=== PATIENT | female | born 1995 | race Caucasian/White ===

== ENCOUNTER 2018-01-07 15:52 | Emergency (ER) | payer SELFPAY ==
[2018-01-07 15:54] VITALS: BP 131/67; PULSE 95; RESP 16; TEMP 36.6; O2SAT 96; BMI 42.3
[2018-01-07 16:36] LABS: Bedside Glucose 107 mg/dL (70-110)
[2018-01-07 16:58] LABS: Pregnancy, Serum, hCG Quali. POSITIVE Negative (0-9 Nonpreg)
--- NOTE | 2018-01-07 17:56 | ED.VISSUMM ---
- ER Visit Summary Date of Service: 01/07/18 Chief Complaint: Patient presents with a constellation of symptoms which include nausea vomiting, sore throat, aches and nasal congestion History of Present Illness: The patient is a 22 F who presents with nausea vomiting started 4-5 days ago and lasted for 1-2 days. She now complains of severe nausea. She states yesterday she had aches and today she has complaint of sore throat. She denies fever or chills. She does complain of right ear pain. She does complain of slight cough. Cough is nonproductive. She does complain of frequency. There is a family history of diabetes. She denies dysuria, urgency or hematuria. She denies any abdominal pain or back pain. She states her menses are irregular. She is sexually active and does not use any form of control. Physical Examination: Vital signs are remarkable for slight elevation blood pressure 131/67. Vital signs are otherwise unremarkable. Head is atraumatic normocephalic. Pupils are equal round reactive. Extraocular muscles are intact. TMs are pearly white with landmarks noted. Nares patent with no drainage there is evidence of boggy nasal mucosa. Posterior pharynx without erythema or exudate. Uvula is midline. There is no dysphonia or dysphasia. Trachea is midline. There is no stridor with auscultation of the neck. Heart is regular without murmur, gallop or rub. S1 and S2 are normal. Lungs are clear to auscultation with good movement of air bilaterally. Abdomen soft nontender. Neuro exam is nonfocal Test Results: B GT unremarkable. Serum test is positive Emergency Department Course and Treatment: Because of irregular menses frequency will obtain serum test as well as B GT central family history diabetes. Treatment Plan: Patient was informed she has a viral illness and that her test was positive. Her jewel inspector/safety lamp keeper is Dr. Dat Walton. Disposition: Discharged home with appropriate home-going instructions and follow-up with safety lamp keeper, Dr. Dat Walton Impression: 1. Acute viral illness 2. Positive test, new diagnosis This note was generated with [employer] software. It may contain incorrect words, spelling, and punctuation that were not noted in review of the chart prior to signing ED Disposition - Plan for ED Patient: Disposition: Home or Assisted Living Chief Complaint: Nausea/Vomiting Instructions: ED Viral Syndrome, ED Preg Established Normal Sxs Referrals: Care Physician,No Primary [Primary Care Provider] - Dat Walton MD [STAFF PHYSICIAN] - 1-2 Weeks
[2018-01-07 18:05] VITALS: BP 116/71; PULSE 73; RESP 15; O2SAT 98
== END 2018-01-07 18:06 | disposition home or self-care (01) ==
PROVIDERS: Emergency Provider Emergency Medicine
DX: B34.9 Viral infection, unspecified (principal); Z33.1 Pregnant state, incidental; H92.01 Otalgia, right ear; J34.89 Other specified disorders of nose and nasal sinuses; J02.9 Acute pharyngitis, unspecified; R05 Cough; R35.0 Frequency of micturition; R11.2 Nausea with vomiting, unspecified; E66.9 Obesity, unspecified; Z72.0 Tobacco use
CPT/HCPCS: 82962; 84703; 99284

== ENCOUNTER → 2018-01-24 16:56 | Outpatient (CLI) | payer SELFPAY ==
[2018-01-24 20:57] LABS: Chlamydia Trachomatis by PCR Negative (Negative); Neisserai gonorrhoeae by PCR Negative (Negative); Probe Check PASS; Sample Adequacy Control PASS; Specimen Processing Control PASS
[2018-01-31 12:15] LABS: HPV Reflexed? NOT INDICATED
== END ==
PROVIDERS: Visit Provider Obstetrics & Gynecology
DX: N39.0 Urinary tract infection, site not specified (principal); R30.0 Dysuria; Z12.4 Encounter for screening for malignant neoplasm of cervix; Z11.3 Encounter for screening for infections with a predominantly sexual mode of transmission
CPT/HCPCS: 87086; 87088; 87186; 87491; 87591; 88175; G0145

== ENCOUNTER → 2018-02-08 15:49 | Outpatient (CLI) | payer SELFPAY ==
[2018-02-08 16:56] LABS: Absolute Neutrophil Count 5.2 X10^3/uL (2.0-7.7); Basophil# 0.01 X10^3/uL; Basophil% 0.1 % (0-1); Eosinophil# 0.09 X10^3/uL; Eosinophils% 1.1 % (0-5); Hematocrit 38.8 % (37-47); Hemoglobin 13.3 g/dl (12.0-15.0); Lymphocyte % 25.9 % (19-41); Mean Corp Hgb Conc 34.3 g/gl (32-36); Mean Corpuscular Hgb 29.9 pg (27.0-32.0); Mean Corpuscular Volume 87.2 fL (81-99); Mean Platelet Vol. 9.5 fl (6.2-12.0); Monocyte# 0.66 X10^3/uL; Monocyte% 8.1 % (0-10); Neutrophil # 5.24 X10^3/uL (2.7-7.7); Neutrophil % 64.8 % (47-70); POSITIVE COUNT NO; POSITIVE DIFFERENTIAL NO; POSITIVE MORPHOLOGY NO; Platelet Count 221 K/mm3 (150-450); RBC Distribution Width CV 13.9 % (11.6-14.6); RBC Distribution Width SD 44.7 fl (35.1-43.9); Red Blood Count 4.45 M/mm3 (4.2-5.4); White Blood Count 8.1 K/mm3 (4.4-11.0)
[2018-02-08 17:00] LABS: Color, Urine Amber (Yellow); Glucose, Dipstick Normal (Normal); Ketone-Dipstick 5 mg/dl (Negative); Leukocyte Esterase-Dipstick 500 /ul (Negative); Nitrite-Dipstick Positive (Negative); Occult Blood-Urine 10 /ul (Negative); Protein-Dipstick 30 mg/dl (Negative); Specific Gravity, Urine 1.025 (1.002-1.030); Urine Bilirubin Dipstick Negative (Negative); Urine Clarity Sl. Cloudy (Clear); Urine Urobilinogen Normal (Normal)
[2018-02-08 17:05] LABS: COTININE Drug Screen Positive (<200 ng/mL)
[2018-02-08 17:12] LABS: Amphetamine Urine VISTA NEGATIVE (<1000 ng/mL); Barbiturate Urine VISTA NEGATIVE (< 200 ng/mL); Benzodiazepine Urine VISTA NEGATIVE (< 200 ng/mL); Cocaine Urine VISTA NEGATIVE (< 300 ng/mL); Ecstacy Urine VISTA NEGATIVE (< 500 ng/mL); Methadone Urine VISTA NEGATIVE (< 300 ng/mL); PCP Urine VISTA NEGATIVE (< 25 ng/mL); THC Urine VISTA NEGATIVE (< 50 ng/mL); Vista UDS pH Range 5
[2018-02-08 17:17] LABS: Thyroid Stim Hormone (TSH) 3.04 uIU/mL (0.358-3.74)
[2018-02-08 17:57] LABS: HIV - WCH Non-Reactive (Nonreactive); Rubella IgG 27.9 IU/mL
[2018-02-09 01:18] LABS: Prenatal RPR NONREACTIVE (NONREACTIVE)
[2018-02-12 10:52] LABS: HEPATITIS B SURFACE AG Negative (Negative); Hep C Antibodies <0.1 s/co ratio (0.0-0.9)
== END ==
PROVIDERS: Visit Provider Obstetrics & Gynecology
DX: Z34.81 Encounter for supervision of other normal pregnancy, first trimester (principal)
CPT/HCPCS: 36415; 80307; 81002; 84443; 85025; 86703; 86762; 86803; 87086; 87088; 87186; 87340

== ENCOUNTER → 2018-04-05 15:12 | Outpatient (CLI) | payer MEDICAID, SELFPAY | PROVIDERS: Visit Provider Obstetrics & Gynecology | DX: Z34.82 Encounter for supervision of other normal pregnancy, second trimester (principal); N39.0 Urinary tract infection, site not specified | CPT/HCPCS: 87086; 87088 ==

== ENCOUNTER 2018-04-29 14:29 | Emergency (ER) | payer MEDICAID, SELFPAY ==
[2018-04-29 14:29] VITALS: BP 139/92; PULSE 118; RESP 16; TEMP 36.3; O2SAT 98; BMI 41.3
--- NOTE | 2018-04-29 15:34 | ED.VISSUMM ---
- ER Visit Summary Date of Service: 04/29/18 Chief Complaint: Dizziness History of Present Illness: The patient is a 22 F who presents with dizziness that began last night. Patient states she had other episodes of dizziness earlier this week that have resolved after several minutes. Patient describes the sensation as a spinning sensation. Patient states she has a burning pain in her occiput that radiates to her frontal area. Patient admits to some tinnitus but denies any hearing changes. Patient admits to some nausea but denies any vomiting. Patient is approximately 5 months . Patient admits to some blurred vision. Physical Examination: Vital signs are stable except for mild tachycardia of 118. Patient is afebrile. Patient is in no acute distress. Pupils are equal, round, and reactive to light bilaterally. Extra ocular muscles are intact. There is no nystagmus noted. Patient did feel somewhat dizzy with movement of her eyes. Oral mucosa is pink and moist. Neck is supple. Trachea is midline. There is no JVD noted. Heart was regular and tachycardic. Lungs were clear and equal bilaterally. Abdomen is soft. Bowel sounds are normal. There is no tenderness noted. Cranial nerves II through XII are intact. There are no focal motor or sensory deficits noted. The remaining physical exam is within normal limits. Test Results: CBC, basic metabolic profile, urinalysis, rapid strep, and influenza swabs were obtained and were all within normal limits. Emergency Department Course and Treatment: Patient was given IV fluids and meclizine here. Orthostatic vital signs were obtained and were normal. Patient felt better on reevaluation. Patient was given a prescription for meclizine. Patient was instructed to follow-up with her primary care physician in 5-7 days. Patient was instructed to follow-up with her SEWING MACHINE MECHANIC as scheduled. Patient understood and was agreeable with the plan. All questions were answered. Disposition: Discharge home Impression: Vertigo This note was generated with [employer] dictation software. It may contain incorrect words, spelling, and punctuation that were not noted in review of the chart prior to signing ED Disposition - Plan for ED Patient: Disposition: Home or Assisted Living Chief Complaint: Dizziness Diagnosis: Vertigo Instructions: ED Vertigo Unspecified Prescriptions: Meclizine HCl [Antivert] 25 mg PO TID PRN PRN #15 tab PRN Reason: Dizziness Referrals: Care Physician,No Primary [Primary Care Provider] -
--- NOTE | 2018-04-29 15:37 | ED.DCSUM_ITS ---
- ER Visit Summary Date of Service: 04/29/18 Chief Complaint: Dizziness History of Present Illness: The patient is a 22 F who presents with dizziness that began last night. Patient states she had other episodes of dizziness earlier this week that have resolved after several minutes. Patient describes the sensation as a spinning sensation. Patient states she has a burning pain in her occiput that radiates to her frontal area. Patient admits to some tinnitus but denies any hearing changes. Patient admits to some nausea but denies any vomiting. Patient is approximately 5 months . Patient admits to some blurred vision. Physical Examination: Vital signs are stable except for mild tachycardia of 118. Patient is afebrile. Patient is in no acute distress. Pupils are equal, round, and reactive to light bilaterally. Extra ocular muscles are intact. There is no nystagmus noted. Patient did feel somewhat dizzy with movement of her eyes. Oral mucosa is pink and moist. Neck is supple. Trachea is midline. There is no JVD noted. Heart was regular and tachycardic. Lungs were clear and equal bilaterally. Abdomen is soft. Bowel sounds are normal. There is no tenderness noted. Cranial nerves II through XII are intact. There are no focal motor or sensory deficits noted. The remaining physical exam is within normal limits. Test Results: CBC, basic metabolic profile, urinalysis, rapid strep, and influenza swabs were obtained and were all within normal limits. Emergency Department Course and Treatment: Patient was given IV fluids and meclizine here. Orthostatic vital signs were obtained and were normal. Patient felt better on reevaluation. Patient was given a prescription for meclizine. Patient was instructed to follow-up with her primary care physician in 5-7 days. Patient was instructed to follow-up with her JINGLE WRITER as scheduled. Patient understood and was agreeable with the plan. All questions were answered. Disposition: Discharge home Impression: Vertigo This note was generated with [employer] dictation software. It may contain incorrect words, spelling, and punctuation that were not noted in review of the chart prior to signing ED Disposition - Plan for ED Patient: Disposition: Home or Assisted Living Chief Complaint: Dizziness Diagnosis: Vertigo Instructions: ED Vertigo Unspecified Prescriptions: Meclizine HCl [Antivert] 25 mg PO TID PRN PRN #15 tab PRN Reason: Dizziness Referrals: Care Physician,No Primary [Primary Care Provider] -
[2018-04-29] MEDS: 0.9% Normal Saline 1,000 ML 1000 ML IV (15:48)
[2018-04-29] MEDS: Meclizine HCl 25 MG Tablet PO (15:50)
[2018-04-29 15:56] LABS: Bedside Glucose 110 mg/dL (70-110)
[2018-04-29 15:58] LABS: Bacteria 0 SEEN /hpf (None Seen); Red Blood Cells-Urine 0 SEEN /hpf (0-5)
[2018-04-29 15:59] LABS: Color, Urine Yellow (Yellow); Glucose, Dipstick 50 mg/dl (Normal); Ketone-Dipstick 5 mg/dl (Negative); Leukocyte Esterase-Dipstick 500 /ul (Negative); Nitrite-Dipstick Negative (Negative); Occult Blood-Urine Negative /ul (Negative); Protein-Dipstick 15 mg/dl (Negative); Urine Bilirubin Dipstick Negative (Negative); Urine Clarity Sl. Cloudy (Clear); Urine Urobilinogen 1 mg/dl (Normal); Urine pH 6.5 (5.0 - 8.0)
[2018-04-29 16:01] LABS: Absolute Lymphocyte Count 2.08 X10^3/ul (0.83-4.51); Absolute Neutrophil Count 6.4 X10^3/uL (2.0-7.7); Basophil# 0.01 X10^3/uL; Basophil% 0.1 % (0-1); Eosinophil# 0.14 X10^3/uL; Eosinophils% 1.5 % (0-5); Hematocrit 38.3 % (37-47); Hemoglobin 13.3 g/dl (12.0-15.0); Lymphocyte # 2.08 X10^3/ul (4.0); Lymphocyte % 22.2 % (19-41); Mean Corp Hgb Conc 34.7 g/gl (32-36); Mean Corpuscular Hgb 30.6 pg (27.0-32.0); Mean Corpuscular Volume 88.2 fL (81-99); Mean Platelet Vol. 9.3 fl (6.2-12.0); Monocyte# 0.68 X10^3/uL; Monocyte% 7.3 % (0-10); Neutrophil # 6.41 X10^3/uL (2.7-7.7); Neutrophil % 68.6 % (47-70); Platelet Count 254 K/mm3 (150-450); RBC Distribution Width CV 13.4 % (11.6-14.6); RBC Distribution Width SD 43.1 fl (35.1-43.9); Red Blood Count 4.34 M/mm3 (4.2-5.4); White Blood Count 9.4 K/mm3 (4.4-11.0)
[2018-04-29 16:02] LABS: POSITIVE COUNT NO; POSITIVE DIFFERENTIAL NO; POSITIVE MORPHOLOGY NO
[2018-04-29 16:09] VITALS: BP 134/84; BP 135/76; BP 138/86; PULSE 104; PULSE 94; PULSE 98
[2018-04-29 16:12] LABS: Anion Gap 7 (5-15); BUN 5 mg/dL (7-18); BUN/Creat Ratio 9.7 RATIO (10-20); Calcium,Total 8.3 mg/dL (8.5-10.1); Chloride 109 mmol/L (98-107); Creatinine, Serum 0.52 mg/dL (0.55-1.02); EST Glomerular Filtration Rate 156 mL/min (>60); Est Glom Filt Rate - Afr Amer 189 mL/min (>60); Estimated Creatinine Clearance 133.08 ml/min; Glucose 97 mg/dL (74-106); Potassium 3.7 mmol/L (3.5-5.1); Sodium Level 139 mmol/L (136-145)
[2018-04-29 16:16] LABS: Squamous Epithelial Cells - UA 10-25 SEEN /hpf (5-10); White Blood Cells 5-10 SEEN /hpf (0-5)
[2018-04-29 16:18] LABS: Amorphous Sediment 2+; Mucous, Urine 1+ /hpf (<or=2+)
[2018-04-29 16:43] VITALS: BP 123/78; PULSE 86; RESP 16; O2SAT 98
[2018-04-29 17:27] VITALS: BP 125/68; PULSE 88; RESP 16; O2SAT 96
== END 2018-04-29 17:37 | disposition home or self-care (01) ==
PROVIDERS: Emergency Provider Emergency Medicine
DX: O26.899 Other specified pregnancy related conditions, unspecified trimester (principal); R42 Dizziness and giddiness; H93.19 Tinnitus, unspecified ear; H53.8 Other visual disturbances; J02.9 Acute pharyngitis, unspecified; R07.9 Chest pain, unspecified; R51 Headache; O99.330 Smoking (tobacco) complicating pregnancy, unspecified trimester; F17.200 Nicotine dependence, unspecified, uncomplicated; Z3A.00 Weeks of gestation of pregnancy not specified
CPT/HCPCS: 80048; 81001; 82962; 85025; 87804; 87880; 96360; 99285

== ENCOUNTER → 2018-06-22 13:24 | Outpatient (CLI) | payer MEDICAID, SELFPAY ==
[2018-06-22 14:36] LABS: Hematocrit 36.7 % (37-47); Hemoglobin 12.3 g/dl (12.0-15.0); Mean Corp Hgb Conc 33.5 g/gl (32-36); Mean Corpuscular Hgb 30.1 pg (27.0-32.0); Mean Corpuscular Volume 89.7 fL (81-99); Mean Platelet Vol. 10.5 fl (6.2-12.0); Platelet Count 239 K/mm3 (150-450); RBC Distribution Width CV 13.2 % (11.6-14.6); RBC Distribution Width SD 43.2 fl (35.1-43.9); Red Blood Count 4.09 M/mm3 (4.2-5.4); White Blood Count 8.5 K/mm3 (4.4-11.0)
[2018-06-22 14:39] LABS: Scan Indicated on CBC? Y/N NO
[2018-06-22 14:46] LABS: Glucose Challenge Gest 1H 50g 121 mg/dL (70-140)
== END ==
PROVIDERS: Visit Provider Obstetrics & Gynecology
DX: Z34.83 Encounter for supervision of other normal pregnancy, third trimester (principal)
CPT/HCPCS: 36415; 82950; 85027

== ENCOUNTER 2018-07-04 16:10 | Outpatient (CLI) | payer MEDICAID, SELFPAY ==
[2018-07-04 17:15] VITALS: BMI 41.4
[2018-07-04 17:51] LABS: Color, Urine Amber (Yellow); Glucose, Dipstick Normal (Normal); Ketone-Dipstick 15 mg/dl (Negative); Leukocyte Esterase-Dipstick 100 /ul (Negative); Nitrite-Dipstick Negative (Negative); Occult Blood-Urine 10 /ul (Negative); Protein-Dipstick 30 mg/dl (Negative); Specific Gravity, Urine 1.025 (1.002-1.030); Urine Clarity Sl. Cloudy (Clear); Urine Urobilinogen 8 mg/dl (Normal); Urine pH 6.5 (5.0 - 8.0)
[2018-07-04 17:56] LABS: Urine Bilirubin Dipstick 3 mg/dL (Negative)
[2018-07-04 18:10] LABS: Bacteria 2+ /hpf (None Seen); Mucous, Urine 3+ /hpf (<or=2+); Red Blood Cells-Urine 0-5 SEEN /hpf (0-5); Squamous Epithelial Cells - UA 5-10 SEEN /hpf (5-10); White Blood Cells 5-10 SEEN /hpf (0-5)
--- NOTE | 2018-07-09 10:14 | OB.TRI.NOTE ---
History of Present Illness Date of Service: 07/04/18 Was patient seen by the physician?: No Reason For Visit: MONITORING DUE TO FALL Date of Service: 07/04/18 Final RADHAMES: 09/14/18 Gestational age: 29 Weeks and 5 Days History of Present Illness: 29+ week intrauterine who fell. Claims she hit her head. She was initially seen on the emergency department and sent to labor and delivery for monitoring. Allergies aloe vera Allergy (Verified 07/04/18 17:48) Hives latex Allergy (Verified 07/04/18 17:48) Rash nitrofurantoin [From Macrobid] Allergy (Verified 07/04/18 17:48) Rash nitrofurantoin macrocrystalline [From Macrobid] Allergy (Verified 07/04/18 17:48) Rash oxycodone [From Percocet] Allergy (Verified 07/04/18 17:48) Hives Penicillins Allergy (Verified 07/04/18 17:48) Rash Laboratory Studies: Laboratory Tests 07/04/18 Range/Units 17:15 Urine Color Sarah (Yellow) Urine Clarity Sl. Cloudy (Clear) Urine pH 6.5 (5.0 - 8.0) Ur Specific [place] 1.025 (1.002-1.030) Urine Protein 30 H (Negative) mg/dl Urine Glucose (UA) Normal (Normal) mg/dl Urine Ketones 15 H (Negative) mg/dl Urine Occult Blood 10 H (Negative) /ul Urine Nitrite Negative (Negative) Urine Bilirubin 3 H (Negative) mg/dL Urine Urobilinogen 8 H (Normal) mg/dl Ur Leukocyte Esterase 100 H (Negative) /ul Urine RBC 0-5 SEEN (0-5) /hpf Urine WBC 5-10 SEEN (0-5) /hpf Ur Squamous Epith Cells 5-10 SEEN (5-10) /hpf Urine Bacteria 2+ (None Seen) /hpf Urine Mucus 3+ (<or=2+) /hpf NST - FHR Rate Baby A NST Reactive:: Yes FHR Category:: Category I Impression/Plan 29+ week intrauterine status post minor fall with reactive nonstress test noted after monitoring. UA suggestive of possible dehydration and/or bladder infection. Will await urine culture and sensitivity results. Patient instructed to return to emergency room for further workup of fall and any possible trauma to her head.
== END 2018-07-04 17:45 | disposition home or self-care (01) ==
LOC: WPOUT 16:25 → WP 16:26
PROVIDERS: Referring Provider Obstetrics & Gynecology; Visit Provider Obstetrics & Gynecology
DX: Z04.3 Encounter for examination and observation following other accident (principal); W19.XXXA Unspecified fall, initial encounter; Y93.9 Activity, unspecified; Y92.9 Unspecified place or not applicable
CPT/HCPCS: 59025; 59050; 81001; 87086; 99218; G0378

== ENCOUNTER 2018-07-04 17:47 | Emergency (ER) | payer MEDICAID, SELFPAY ==
[2018-07-04 17:15] VITALS: BMI 41.4
[2018-07-04 17:48] VITALS: BP 133/70; PULSE 108; RESP 16; TEMP 36.1; O2SAT 99; BMI 41.3
--- NOTE | 2018-07-04 18:48 | CT_ITS ---
STUDY: CT CERVICAL SPINE WITHOUT CONTRAST REASON FOR EXAM: Female, 22 years old. Trauma. Syncope with fall, head injury. RADIATION DOSAGE (If Supplied By Facility): CTDIvol = ( 26.09 ) mGy, DLP = ( 555.38 ) mGycm TECHNIQUE: High resolution transaxial imaging was performed without contrast material. Sagittal and coronal images were reconstructed. Individualized dose optimization techniques were used for this CT. COMPARISON: None FINDINGS: Normal craniovertebral junction. Normal anterior atlantoaxial articulation. Normal odontoid process. Normal cervical lordosis. Normal vertebral bodies and posterior osseous elements. C2-3: Normal endplates. Normal disc height and morphology. Normal central canal and intervertebral neuroforamina. C3-4: Normal endplates. Normal disc height and morphology. Normal central canal and intervertebral neuroforamina. C4-5: Normal endplates. Normal disc height and morphology. Normal central canal and intervertebral neuroforamina. C5-6: Normal endplates. Normal disc height and morphology. Normal central canal and intervertebral neuroforamina. C6-7: Normal endplates. Normal disc height and morphology. Normal central canal and intervertebral neuroforamina. C7-T1: Normal endplates. Normal disc height and morphology. Normal central canal and intervertebral neuroforamina. Normal visualized soft tissue structures. CT/Spine Cervical without Contras IMPRESSION: Normal unenhanced CT examination of the cervical spine. Electronically Signed: Nell Dan MD at 19:45 EST Tel , Service support ,
--- NOTE | 2018-07-04 18:48 | CT_ITS ---
STUDY: CT BRAIN WITHOUT CONTRAST REASON FOR EXAM: Female, 22 years old. Trauma. Syncope, fall. RADIATION DOSAGE (If Supplied By Facility): CTDIvol = ( 44.99 ) mGy, DLP = ( 711.75 ) mGycm TECHNIQUE: Transaxial CT imaging of the brain was performed without administration of intravenous contrast material. Individualized dose optimization techniques were used for this CT. COMPARISON: None. FINDINGS: Normal soft tissue structures. Normal calvarium. Normal size ventricles and extra-axial spaces for the patient's age. Normal white matter tracts of the cerebral hemispheres. Normal basal ganglia and thalami. Normal brainstem. Normal cerebellum. There is no intracranial hemorrhage. There are no findings of an acute ischemic infarction. Normal visualized paranasal sinuses. CT/Brain/Head without Contrast IMPRESSION: Normal unenhanced CT scan of the brain. Electronically Signed: Nell Dan MD at 19:37 EST Tel , Service support ,
--- NOTE | 2018-07-04 18:53 | ED.DCSUM_ITS ---
- ER Visit Summary Date of Service: 07/04/18 Chief Complaint: Syncope History of Present Illness: The patient is a 22 F presenting after syncopal episode. Patient states she has not been feeling well with nausea for the past couple of days. She has not been eating and drinking as usual. She has also has diarrhea. Denies blood in her stool. She states she stood up from the couch to go upstairs and had a syncopal episode. She hit the back of her head. She went to OB triage prior to arrival. She is 29 weeks . . She states OB triage told her the baby is okay. She denies vaginal bleeding or fluid leakage. Denies abdominal pain. Denies chest pain or shortness of breath. Denies other complaints. Physical Examination: Vitals are stable. Patient is afebrile. Alert no acute distress. HEENT exam is unremarkable. Neck is mild diffuse tenderness Lungs are clear and equal bilaterally. Heart is regular rate and rhythm. Abdomen is soft nontender gravid Extremities are unremarkable. Skin is warm and dry. No focal neurologic deficit. Remainder of exam is unremarkable. Emergency Department Course and Treatment: Patient was given IV fluids, Zofran, Tylenol. Basic metabolic panel shows CO2 20. heart tones 144. CT head and neck show no acute process. On reevaluation, patient is resting comfortably. She is advised to drink plenty of fluids. She is given prescription for Zofran. Advised to follow-up with her CASINO FLOOR SUPERVISOR. Advised return to ED if worsening complaints. Disposition: Discharge home Impression: Syncope, mild dehydration, This note was generated with [employer] dictation software. It may contain incorrect words, spelling, and punctuation that were not noted in review of the chart prior to signing ED Disposition - Plan for ED Patient: Referrals: Care Physician,No Primary [Primary Care Provider] -
--- NOTE | 2018-07-04 18:53 | EKG12_ITS ---
Test Reason : SYNCOPE Blood Pressure : / mmHG Vent. Rate : 081 BPM Atrial Rate : 081 BPM P-R Int : 164 ms QRS Dur : 084 ms QT Int : 366 ms P-R-T Axes : 033 042 006 degrees QTc Int : 425 ms Normal sinus rhythm Normal ECG Confirmed by VETO SENIOR MD ([id number]), commissioning editor TERRI MACIAS ([id number]) on 07/10/2018 11:14:36 AM Referred By: TAMI Confirmed By:VETO SENIOR MD
[2018-07-04] MEDS: 0.9% Normal Saline 1,000 ML 999 ML IV (19:02)
[2018-07-04] MEDS: Ondansetron 4 MG/2 ML Vial IV (19:03)
[2018-07-04] MEDS: Acetaminophen 500 MG Tablet 1000 MG PO (19:03)
[2018-07-04 19:26] LABS: Anion Gap 11 (5-15); BUN 5 mg/dL (7-18); BUN/Creat Ratio 10.6 RATIO (10-20); Calcium,Total 8.6 mg/dL (8.5-10.1); Chloride 108 mmol/L (98-107); Creatinine, Serum 0.47 mg/dL (0.55-1.02); EST Glomerular Filtration Rate 172 mL/min (>60); Est Glom Filt Rate - Afr Amer 208 mL/min (>60); Estimated Creatinine Clearance 147.24 ml/min; Glucose 84 mg/dL (74-106); Potassium 3.9 mmol/L (3.5-5.1); Sodium Level 139 mmol/L (136-145)
[2018-07-04 20:12] VITALS: BP 123/72; PULSE 88; RESP 17; O2SAT 97
--- NOTE | 2018-07-04 20:24 | ED.DEP ---
ED Disposition - Plan for ED Patient: Instructions: ED Fainting Unkn Cause Prescriptions: Ondansetron [Zofran Odt] 4 mg PO Q8H PRN PRN #10 tablet PRN Reason: Nausea Referrals: Dat Walton MD [STAFF PHYSICIAN] -
[2018-07-04 20:48] VITALS: BP 113/68; PULSE 80; RESP 18
== END 2018-07-04 20:50 | disposition home or self-care (01) ==
LOC: ED 19:01
PROVIDERS: Emergency Provider Emergency Medicine
DX: O99.89 Other specified diseases and conditions complicating pregnancy, childbirth and the puerperium (principal); R55 Syncope and collapse; E86.0 Dehydration; R19.7 Diarrhea, unspecified; O99.332 Smoking (tobacco) complicating pregnancy, second trimester; F17.200 Nicotine dependence, unspecified, uncomplicated; Z3A.29 29 weeks gestation of pregnancy; Z04.3 Encounter for examination and observation following other accident; W19.XXXA Unspecified fall, initial encounter; Y93.9 Activity, unspecified; Y92.9 Unspecified place or not applicable
CPT/HCPCS: 59025; 59050; 70450; 72125; 80048; 81001; 87086; 87088; 93005; 96361; 96374; 99218; 99283; J7030; A4216; G0378; J2405

== ENCOUNTER → 2018-08-01 10:50 | Outpatient (CLI) | payer MEDICAID, SELFPAY ==
[2018-07-04 17:48] VITALS: BMI 41.3
== END ==
PROVIDERS: Visit Provider Obstetrics & Gynecology
DX: R30.0 Dysuria (principal)
CPT/HCPCS: 87086; 87088

== ENCOUNTER 2018-08-13 18:38 | Outpatient (CLI) | payer MEDICAID, SELFPAY ==
[2018-08-13 18:44] VITALS: BMI 94.3
[2018-08-13 20:34] LABS: ROM Internal Control Test YES-OK TO RESULT pt. (Internal QC); ROM Patient Test Negative (Negative)
[2018-08-13 20:35] LABS: Record Kit Lot#, ROM+ J7836
--- NOTE | 2018-08-15 09:42 | OB.TRI.HP_ITS ---
History of Present Illness Was patient seen by the physician?: No Reason For Visit: RULE OUT LABOR Date of Service: 08/13/18 Final RADHAMES: 09/14/18 Gestational age: 35 Weeks and 3 Days History of Present Illness: 35+ week intrauterine presents with some leaking of fluid. Concerned about rupture of membranes. Also a few contractions. Allergies aloe vera Allergy (Verified 07/04/18 17:48) Hives latex Allergy (Verified 07/04/18 17:48) Rash nitrofurantoin [From Macrobid] Allergy (Verified 07/04/18 17:48) Rash nitrofurantoin macrocrystalline [From Macrobid] Allergy (Verified 07/04/18 17:48) Rash oxycodone [From Percocet] Allergy (Verified 07/04/18 17:48) Hives Penicillins Allergy (Verified 07/04/18 17:48) Rash Laboratory Studies: Laboratory Tests 08/13/18 Range/Units 18:50 Vag Amniotic Fld Detect Negative (Negative) NST - FHR Rate Baby A NST Reactive:: Yes FHR Category:: Category I Impression/Plan 35+ week intrauterine with transient contractions. ROM plus t est negative. Nonstress test reactive. No change in cervix after monitoring. Released to home with routine instructions.
== END 2018-08-13 21:00 | disposition home or self-care (01) ==
LOC: WPOUT 18:41 → WP 08-14 09:19
PROVIDERS: Visit Provider Obstetrics & Gynecology
DX: O26.893 Other specified pregnancy related conditions, third trimester (principal); N85.8 Other specified noninflammatory disorders of uterus; Z3A.35 35 weeks gestation of pregnancy; Z91.040 Latex allergy status
CPT/HCPCS: 59025; 59050; 84112; 99218; G0378

== ENCOUNTER → 2018-08-15 13:51 | Outpatient (CLI) | payer MEDICAID, SELFPAY ==
[2018-08-13 18:44] VITALS: BMI 94.3
== END ==
PROVIDERS: Visit Provider Obstetrics & Gynecology
DX: R30.0 Dysuria (principal)
CPT/HCPCS: 87086; 87088

== ENCOUNTER 2018-08-18 22:40 | Outpatient (CLI) | payer MEDICAID, SELFPAY ==
[2018-08-18 23:20] VITALS: BMI 42.3
[2018-08-18 23:52] LABS: ROM Internal Control Test YES-OK TO RESULT pt. (Internal QC); ROM Patient Test Negative (Negative); Record Kit Lot#, ROM+ J7836
[2018-08-19 00:10] VITALS: RESP 18
--- NOTE | 2018-08-19 11:23 | OB.TRI.NOTE ---
- Problem List (1) 36 weeks gestation of Status: Acute (2) False labor Status: Acute History of Present Illness Date of Service: 08/18/18 Was patient seen by the physician?: No Reason For Visit: R/O SROM Final RADHAMES: 09/14/18 Gestational age: 36 Weeks and 1 Days History of Present Illness: 22yo with c/o leaking of fluid. Allergies aloe vera Allergy (Verified 08/18/18 23:19) Hives latex Allergy (Verified 08/18/18 23:19) Rash nitrofurantoin [From Macrobid] Allergy (Verified 08/18/18 23:19) Rash nitrofurantoin macrocrystalline [From Macrobid] Allergy (Verified 08/18/18 23:19) Rash oxycodone [From Percocet] Allergy (Verified 08/18/18 23:19) Rash Penicillins Allergy (Verified 08/18/18 23:19) Hives Laboratory Studies: Laboratory Tests 08/18/18 Range/Units 23:03 Vag Amniotic Fld Detect Negative (Negative) Physical Exam Vitals: Vital Signs Resp 18 08/19/18 00:10 AVSS Cervix Dilation (cm): 1.5 - per SACHI Frye exam Station: -3 Effacement (%): 0 NST - FHR Rate Baby A Baseline: 140 Variability:: Moderate Accelerations:: 15 x 15 Decelerations:: None NST Reactive:: Yes FHR Category:: Category I Uterine Activity:: 1-3 Impression/Plan 22yo @ 36 1/7wga with false labor, Cat I FHR -ROM plus negative -d/c home
== END 2018-08-19 00:10 | disposition home or self-care (01) ==
LOC: WPOUT 23:11 → WP 23:12
PROVIDERS: Visit Provider Obstetrics & Gynecology
DX: O47.03 False labor before 37 completed weeks of gestation, third trimester (principal); Z3A.36 36 weeks gestation of pregnancy
CPT/HCPCS: 59025; 59050; 84112; 99218; G0378

== ENCOUNTER 2018-09-07 05:00 | Inpatient (IN) | payer MEDICAID, SELFPAY ==
--- NOTE | 2018-09-06 10:16 | PCM.HP.BLA ---
History and Physical Date of Admission: 09/07/18 [facility] History of this : 23 yo female Ab0 with EDC 09/14/2018 by Ultrasound, presents to Labor and Delivery. care remarkable for - WANTS PATERNITY TESTING after delivery, E Coli UTI., Wants MSAFP and CF testing, Smoker-pos on tox scrn, Prior considered but decided on repeat . Pertinent Past Medical History: Allergies: Latex Medications: During - Keflex 500 mg capsule; Keflex 500 mg capsule; Pyridium 200 mg tablet; Keflex 500 mg capsule; Vitamin tablet; Pyridium 200 mg tablet; Keflex 500 mg capsule Review of Systems: Noncontributory PHYSICAL EXAMINATION General Appearence: 23 yo female in no acute distress Vital Signs: AF, VSS Heart: RRR without rubs or gallops Lungs: CTA x 2 Breasts: deferred Abdomen: gravid Pelvis: Presentation: cephalic Fetus: Size: AGA Movement: present Heart: present Impression /Plan: Intrauterine . Preperations in progress for delivery. Plan Repeat LTCCS.
--- NOTE | 2018-09-06 10:19 | HP.PCM_ITS ---
History and Physical Date of Admission: 09/07/18 [facility] History of this : 23 yo female Ab0 with EDC 09/14/2018 by Ultrasound, presents to Labor and Delivery. care remarkable for - WANTS PATERNITY TESTING after delivery, E Coli UTI., Wants MSAFP and CF testing, Smoker-pos on tox scrn, Prior considered but decided on repeat . Pertinent Past Medical History: Allergies: Latex Medications: During - Keflex 500 mg capsule; Keflex 500 mg capsule; Pyridium 200 mg tablet; Keflex 500 mg capsule; Vitamin tablet; Pyridium 200 mg tablet; Keflex 500 mg capsule Review of Systems: Noncontributory PHYSICAL EXAMINATION General Appearence: 23 yo female in no acute distress Vital Signs: AF, VSS Heart: RRR without rubs or gallops Lungs: CTA x 2 Breasts: deferred Abdomen: gravid Pelvis: Presentation: cephalic Fetus: Size: AGA Movement: present Heart: present Impression /Plan: Intrauterine . Preperations in progress for delivery. Plan Repeat LTCCS.
[2018-09-07] VITALS (19 sets, daily range): BP systolic 105–124; BP diastolic 54–80; PULSE 64–95; RESP 16–18; TEMP 36.1–37.2; O2SAT 95–100; BMI 44.1
[2018-09-07] MEDS: Lactated Ringers 1,000 ML 999 ML IV (05:15)
[2018-09-07 05:52] LABS: Absolute Lymphocyte Count 2.11 X10^3/ul (0.83-4.51); Absolute Neutrophil Count 6.6 X10^3/uL (2.0-7.7); Basophil# 0.02 X10^3/uL; Basophil% 0.2 % (0-1); Eosinophil# 0.09 X10^3/uL; Eosinophils% 0.9 % (0-5); Hematocrit 33.6 % (37-47); Hemoglobin 10.9 g/dl (12.0-15.0); Lymphocyte # 2.11 X10^3/ul (4.0); Mean Corp Hgb Conc 32.4 g/gl (32-36); Mean Corpuscular Hgb 26.4 pg (27.0-32.0); Mean Corpuscular Volume 81.4 fL (81-99); Mean Platelet Vol. 9.5 fl (6.2-12.0); Monocyte# 0.68 X10^3/uL; Monocyte% 7.1 % (0-10); Neutrophil # 6.64 X10^3/uL (2.7-7.7); Neutrophil % 69.4 % (47-70); Platelet Count 250 K/mm3 (150-450); RBC Distribution Width CV 14.8 % (11.6-14.6); RBC Distribution Width SD 43.6 fl (35.1-43.9); Red Blood Count 4.13 M/mm3 (4.2-5.4); White Blood Count 9.6 K/mm3 (4.4-11.0)
[2018-09-07 05:55] LABS: POSITIVE COUNT NO; POSITIVE DIFFERENTIAL NO; POSITIVE MORPHOLOGY NO
[2018-09-07 06:12] LABS: Prothrombin Time (Protime)PT. 13.4 SECONDS (11.7-14.9)
[2018-09-07 06:13] LABS: Partial Thromboplast Time 29.7 Seconds (24.1-36.2)
[2018-09-07] MEDS: Lactated Ringers 1,000 ML 100 ML IV ×2 (06:34→09:31)
[2018-09-07] MEDS: Sodium Citrate/Citric Acid 30 ML UDC PO (06:57)
[2018-09-07] MEDS: Cefazolin 2 GM in 0.9% Normal Saline 100 ML IV (06:57)
--- NOTE | 2018-09-07 07:24 | OP.PCM_ITS ---
Report of Operation Date of Procedure: 09/07/18 Pre-Operative Diagnosis: Previous Section Post-Operative Diagnosis: Previous Section Surgery/Procedure Performed:: Repeat Low Transverse Cervical Section Description of Surgical Findings:: Viable female with Apgars of 8/9 and an occiput anterior presentation with meconium stained amniotic fluid and normal three-vessel placenta with meconium stained membranes. tip puncher: Katya Hyatt Type of Anesthesia:: Spinal - With Duramorph Anesthesiologist: Lidia Grey Drains: Cabral to straight drain Estimated Blood Loss (mL): 500 cc Fluids Replaced: Crystalloid Description of Procedure: Surgeon: Dat Walton MD, FACOG Indication: This is a 23-year-old who presents for her second at 39+ weeks gestation. care has otherwise been uneventful. The patient has been counseled regarding the risk and indications of this procedure including the possibility of bleeding infection and injury to surrounding structures such as bowel bladder. All questions were answered. Procedure: Patient was taken to the operating room where after spinal anesthesia was placed, the patient was prepped and draped in usual sterile fashion and a Cabral catheter was placed. The abdomen was entered through the patient's prior Pfannenstiel incision and peritoneum was entered bluntly. After developing a bladder flap on the lower uterine segment a low transverse incision was made on the uterus and head was easily delivered onto the operative field the nose mouth and oropharynx were bulb suctioned. Subsequently a viable female infant was born with Apgars of 8/9. The was noted to cry move all extremities vigorously on the operative field. The umbilical cord was doubly clamped and ligated and handed to the nursery personnel who were present for the [facility]. Placenta was delivered and noted to be 3 vessels and normal except for some meconium staining . Uterus was exteriorized and remaining placental tissue was removed. The uterus was then closed in 2 layers first with running locked 0 Vicryl suture followed by a second imbricating layer with 0 Vicryl suture. 0 Vicryl suture was then used in a horizontal mattress interrupted fashion to affect final hemostasis of the uterine incision line. Normal fallopian tubes and ovaries were visualized and the uterus was returned to the pelvis. Hemostasis was noted and rectus abdominis muscles were reapproximated in the midline with interrupted Number 0 Vicryl suture in a horizontal mattress fashion. Fascia was closed with running Number 1 PDS Strata fix suture. Subcutaneous tissue was irrigated with copious amounts of saline solution and then closed with running 3-0 Vicryl suture. Skin was closed with 4-0 monocryl suture in a running subcuticular fashion. Steri strips, telfa, and tape were placed across the incision. The patient tolerated the procedure well and was taken to the recovery room in satisfactory condition. Sponge, needle, and instrument counts were all reportedly correct. EBL was less than 500 cc. Ancef 2 gms IV was given prior to the procedure. Spicemen to Pathology: None Grafts/Implants Used: None - Complications None - Admit VTE Documentation VTE Present on Admission: Yes VTE Mechan Device Prophylaxis: SCD's
--- NOTE | 2018-09-07 07:25 | DCINST_ITS ---
Discharge Diet: No Restrictions Discharge Activity: May not drive while taking narcotic pain medications., May Shower, May Take a Tub Bath May resume sexual activity in: 4-6 weeks Lifting Restrictions: 20 pounds Additional Activity Instructions:: Nothing in the vagina for 4-6 weeks. You may return to work/school in 6 weeks. Call your doctor if your incision/area has: Continuous Slow Oozing, Sudden Increased Bleeding, Increased Pain/ Swelling, Increased Redness, Foul Smelling Discharge Call your doctor if you observe: Fever of 101 or Higher, Inability to urinate, Inability to have a bowel movement, Using more than one pad per hour Additional Instructions: If you experience any of the following, contact your healthcare provider. * Bleeding that soaks a pad every hour for 2 hours * Fever 100.4 or higher * Unrelieved incision or abdominal pain * Swelling, redness, discharge or bleeding from your incision or episiotomy site * Your incision begins to separate * Problems urinating (including inability to urinate or burning while urinating). * Visual changes * Severe headache * Flu-like symptoms * Pain or redness in one of both of your breasts * Pain, warmth, tenderness or swelling in your legs, especially the calf area * Frequent nausea and vomiting * Symptoms of depression or anxiety If you experience any of the following, call 911 or go to the nearest Emergency Room. * Chest pain * Problems breathing * Seizure activity * Partial or complete paralysis of a body part, slurred speech, weakness or drooping of the face, or a sudden inability to walk or hold your balance Allergies/Adverse Reactions: Allergies aloe vera Allergy (Verified 09/07/18 05:21) Hives latex Allergy (Verified 09/07/18 05:21) Rash nitrofurantoin [From Macrobid] Allergy (Verified 09/07/18 05:21) Rash nitrofurantoin macrocrystalline [From Macrobid] Allergy (Verified 09/07/18 05:21) Rash oxycodone [From Percocet] Allergy (Verified 09/07/18 05:21) Rash Penicillins Allergy (Verified 09/07/18 05:21) Hives Medications to take at Discharge Vit No.130/Iron/Folic [ Tablet] 1 each PO DAILY 07/04/18 Docusate Sodium [Colace] 100 mg PO BID PRN PRN #60 cap 09/07/18 Oxycodone [Oxyir] 5 mg PO Q6H PRN PRN 7 Days #20 tab 09/07/18 The following prescriptions were given: Oxycodone [Oxyir] 5 mg PO Q6H PRN PRN 7 Days #20 tab PRN Reason: Severe Pain (6-02/28) Docusate Sodium [Colace] 100 mg PO BID PRN PRN #60 cap PRN Reason: Constipation Follow-Up: Call to make an appointment with your doctor for an incision check in 1-2 weeks. You will also need a 6 week post- follow up appointment. Test results from this visit will be discussed in further detail at your follow- up appointment, if applicable. Please Follow Up With: Dat Walton MD - [phone] When: Call to make an appointment for an incision check in 2 weeks. Primary Care Physician: Care Physician,No Primary [Primary Care Provider] -
[2018-09-07] MEDS: Oxytocin 30 units/NS 500 ml 30 UNITS/500 ML IV.SOLN 167 UNITS IV (07:44)
[2018-09-07] MEDS: Ketorolac 30 MG/ML Syringe IV ×2 (08:00→14:26)
--- NOTE | 2018-09-07 09:21 | NURSING ---
Dr Walton completed the abdominal chloraprep on pt following bouchra KARIMI.
--- NOTE | 2018-09-07 09:29 | NURSING ---
moderate clot noted the size of an egg with fundal check. uterus firm and one below umbilicus, midline. no continuous bleeding noted. will continue to monitor and give IM methergine.
[2018-09-07] MEDS: Methylergonovine 0.2 MG/ML Ampul IM (09:31)
--- NOTE | 2018-09-07 11:50 | NURSING ---
Paternity pamphlet given to mother, discussed that if they wanted paternity testing to call number highlighted now so that they could come today prior to the weekend. Mother said she didn't think they would want that and I discussed the procedure and since they weren't she should discuss it with the father of the baby. questions answered.
[2018-09-07] MEDS: Cefazolin 1 GM/50 ML BAG IV (14:32)
--- NOTE | 2018-09-07 18:57 | NURSING ---
Patient's IV infiltrated. Patient refuses to have IV restarted. Dr Lee education and training manager and notified. Patient verbalizes understanding that without IV she will not be able to receive IV toradol and last dose of antibiotic.
[2018-09-07] MEDS: Ketorolac 10 MG Tablet PO (22:04)
[2018-09-08 01:40] VITALS: PULSE 84; RESP 18; O2SAT 96
[2018-09-08 03:12] VITALS: RESP 18; O2SAT 99
--- NOTE | 2018-09-08 03:13 | NURSING ---
0310 Assisted pt up to BR, esqueda removed, pericare done. Pt tolerated well.
[2018-09-08 03:15] VITALS: BP 113/59; PULSE 78; RESP 20; TEMP 36.4; O2SAT 98
[2018-09-08 05:58] LABS: Hematocrit 33.8 % (37-47); Hemoglobin 10.6 g/dl (12.0-15.0); Mean Corp Hgb Conc 31.4 g/gl (32-36); Mean Corpuscular Hgb 26.4 pg (27.0-32.0); Mean Corpuscular Volume 84.3 fL (81-99); Mean Platelet Vol. 9.6 fl (6.2-12.0); Platelet Count 211 K/mm3 (150-450); RBC Distribution Width SD 46.4 fl (35.1-43.9); Red Blood Count 4.01 M/mm3 (4.2-5.4); White Blood Count 10.7 K/mm3 (4.4-11.0)
[2018-09-08 06:00] LABS: Scan Indicated on CBC? Y/N NO
[2018-09-08] MEDS: Ketorolac 10 MG Tablet PO ×2 (07:38→13:59)
[2018-09-08 07:51] VITALS: BP 125/60; PULSE 102; RESP 18; TEMP 36.5; O2SAT 95
--- NOTE | 2018-09-08 08:11 | PCM.PN.OB ---
Subjective: doing well no complaints pain controlled no CP SOB N V ambulating well tolerating po lochia moderate - Physical Exam General: Alert, Oriented x3 Vital Signs Temp Pulse Resp BP Pulse Ox 97.7 F L 102 H 18 125/60 H 95 09/08/18 07:51 09/08/18 07:51 09/08/18 07:51 09/08/18 07:51 09/08/18 07:51 Oxygen Delivery Method Room Air Weight: 241 lb 9.6 oz Body Mass Index (BMI) 44.1 Finger Stick Blood Glucose 110 Intake and Output for Last 24 Hours 09/06/18 09/07/18 09/08/18 23:59 23:59 23:59 Intake Total 2050 Output Total 650 / 650 1100 / 1100 Balance 1401 / 1401 -1100 / -1100 Laboratory Tests Past 24 Hrs 09/08/18 05:15 WBC 10.7 RBC 4.01 L Hgb 10.6 L Hct 33.8 L MCV 84.3 MCH 26.4 L MCHC 31.4 L RDW 15.0 H RDW Differential 46.4 H Plt Count 211 MPV 9.6 Medical Necessity - Tobacco Use Smoking Status: Light Smoker (<10/day) Assessment/Plan All Active Problems 36 weeks gestation of (Acute) False labor (Acute) s/p LTCS PPD # 1 1. routine post care 2. breast feeding- support given 3. rh positive 4. rubella immune
--- NOTE | 2018-09-08 08:19 | PCM.PN.OB ---
Subjective: Patient without complaints. Tolerating diet well. Positive flatus. - Physical Exam Vital Signs Temp Pulse Resp BP Pulse Ox 97.7 F L 102 H 18 125/60 H 95 09/08/18 07:51 09/08/18 07:51 09/08/18 07:51 09/08/18 07:51 09/08/18 07:51 Oxygen Delivery Method Room Air Weight: 241 lb 9.6 oz Body Mass Index (BMI) 44.1 Finger Stick Blood Glucose 110 Intake and Output for Last 24 Hours 09/06/18 09/07/18 09/08/18 23:59 23:59 23:59 Intake Total 2050 Output Total 650 / 650 1100 / 1100 Balance 1401 / 1401 -1100 / -1100 Laboratory Tests Past 24 Hrs 09/08/18 05:15 WBC 10.7 RBC 4.01 L Hgb 10.6 L Hct 33.8 L MCV 84.3 MCH 26.4 L MCHC 31.4 L RDW 15.0 H RDW Differential 46.4 H Plt Count 211 MPV 9.6 Wound is clean, dry, intact. Good urine output. Hemoglobin okay. Medical Necessity - Tobacco Use Smoking Status: Light Smoker (<10/day) Assessment/Plan All Active Problems 36 weeks gestation of (Resolved) False labor (Resolved) Doing well postoperative day #1 status post repeat . Continuing present care.
[2018-09-08 14:00] VITALS: BP 116/77; PULSE 92; RESP 18; TEMP 36.4; O2SAT 96
[2018-09-08] MEDS: oxyCODONE 5 MG Tablet PO ×2 (15:28→19:51)
[2018-09-08 19:55] VITALS: BP 122/71; PULSE 89; RESP 18; TEMP 37.2; O2SAT 96
[2018-09-09 02:20] VITALS: BP 126/73; PULSE 87; RESP 18; TEMP 37.1
[2018-09-09] MEDS: oxyCODONE 5 MG Tablet PO ×2 (02:27→09:30)
[2018-09-09 08:30] VITALS: BP 129/82; PULSE 93; RESP 18; TEMP 36.9; O2SAT 96
--- NOTE | 2018-09-09 10:14 | PCM.PN.OB ---
Subjective: doing well no complaints pain controlled no CP SOB N V ambulating well tolerating po lochia moderate, going well - Physical Exam General: Alert, Oriented x3 Vital Signs Temp Pulse Resp BP Pulse Ox 98.4 F 93 18 129/82 H 96 09/09/18 08:30 09/09/18 08:30 09/09/18 08:30 09/09/18 08:30 09/09/18 08:30 Oxygen Delivery Method Room Air Weight: 241 lb 9.6 oz Body Mass Index (BMI) 44.1 Finger Stick Blood Glucose 110 Intake and Output for Last 24 Hours 09/07/18 09/08/18 09/09/18 23:59 23:59 23:59 Intake Total 2050 / 2050 Output Total 650 / 650 1100 / 1100 Balance 1401 / 1401 -1100 / -1100 Medical Necessity - Tobacco Use Smoking Status: Light Smoker (<10/day) Assessment/Plan All Active Problems (Last Updated 09/08/18 @ 08:20 by Dat Walton MD) 36 weeks gestation of (Resolved) False labor (Resolved) s/p LTCS PPD # 1 1. routine post care 2. breast feeding- support given 3. rh positive 4. rubella immune
== END 2018-09-09 11:50 | disposition home or self-care (01) | DRG 540 ==
PROVIDERS: Admitting Provider Obstetrics & Gynecology; Referring Provider Obstetrics & Gynecology; Visit Provider Obstetrics & Gynecology
PROC: 10D00Z1 Extraction of Products of Conception, Low, Open Approach (ICD-10-PCS; CPT 59514; principal; 2018-09-07 07:15)
DX: O34.211 Maternal care for low transverse scar from previous cesarean delivery (principal); N85.8 Other specified noninflammatory disorders of uterus; Z3A.39 39 weeks gestation of pregnancy; Z37.0 Single live birth; O77.0 Labor and delivery complicated by meconium in amniotic fluid; O99.334 Smoking (tobacco) complicating childbirth; F17.200 Nicotine dependence, unspecified, uncomplicated
CPT/HCPCS: 85025; 85027; 85610; 85730; 86850; 86900; 99218; J7120; G0378; J2405; J3490

== ENCOUNTER → 2019-01-25 10:25 | Outpatient (CLI) | payer MEDICAID, SELFPAY ==
[2018-09-07 05:17] VITALS: BMI 44.1
[2019-01-25 12:14] LABS: Hematocrit 40.6 % (37-47); Hemoglobin 13.1 g/dL (12.0-15.0); Mean Corp Hgb Conc 32.3 g/dL (32-36); Mean Corpuscular Hgb 27.1 pg (27.0-32.0); Mean Corpuscular Volume 83.9 fL (81-99); Mean Platelet Vol. 9.3 fl (6.2-12.0); Platelet Count 291 K/mm3 (150-450); RBC Distribution Width CV 14.5 % (11.6-14.6); RBC Distribution Width SD 43.9 fl (35.1-43.9); Red Blood Count 4.84 M/mm3 (4.2-5.4); White Blood Count 6.9 K/mm3 (4.4-11.0)
[2019-01-25 12:47] LABS: Anion Gap 6 (5-15); BUN 11 mg/dL (7-18); BUN/Creat Ratio 13.7 RATIO (10-20); Calcium,Total 8.8 mg/dL (8.5-10.1); Chloride 112 mmol/L (98-107); Cholesterol 157 mg/dL (200); EST Glomerular Filtration Rate 93 mL/min (>60); Est Glom Filt Rate - Afr Amer 113 mL/min (>60); Glucose 100 mg/dL (74-106); High Density Lipoprotein 32 mg/dL; Potassium 4.1 mmol/L (3.5-5.1); Sodium Level 143 mmol/L (136-145); Triglycerides 182 mg/dL; Very Low Density Lipoprotein 36 mg/dL (5-40)
== END ==
PROVIDERS: Visit Provider Family Medicine
DX: L65.9 Nonscarring hair loss, unspecified (principal); E66.01 Morbid (severe) obesity due to excess calories
CPT/HCPCS: 36415; 80048; 80061; 84443; 85027

== ENCOUNTER 2019-03-29 12:28 | Emergency (ER) | payer MEDICAID, SELFPAY ==
[2018-09-07 05:17] VITALS: BMI 44.1
[2019-03-29 12:28] VITALS: BP 163/87; PULSE 104; RESP 20; TEMP 36.9; O2SAT 97; BMI 45.3
--- NOTE | 2019-03-29 12:45 | EKG12_ITS ---
Test Reason : HEADACHE Blood Pressure : / mmHG Vent. Rate : 090 BPM Atrial Rate : 090 BPM P-R Int : 148 ms QRS Dur : 086 ms QT Int : 376 ms P-R-T Axes : 042 052 020 degrees QTc Int : 459 ms Normal sinus rhythm Normal ECG Confirmed by PARRISH DELUCA, VETO ([id number]), desk editor JODIE KEN ([id number]) on 04/02/2019 2:19:15 PM Referred By: TAMI Confirmed By:VETO SENIOR MD
--- NOTE | 2019-03-29 12:45 | RAD_ITS ---
STUDY: X-RAY CHEST REASON FOR EXAM: Female, 23 years old. Chest pain. Headaches. TECHNIQUE: Single AP portable view of the chest. COMPARISON: None. FINDINGS: I suspect a focal left perihilar infiltrate. There is no demonstrated pleural abnormality. Normal size heart. Normal mediastinum and anton. Normal visualized pulmonary arteries. Normal visualized aortic arch and descending thoracic aorta. Normal visualized thoracic spine. Normal visualized ribs, clavicles, and shoulders. There is no demonstrated abnormality of the visualized soft tissue structures of the upper abdomen. RAD/Chest 1 View (Portable) IMPRESSION: I suspect a focal left perihilar infiltrate. Electronically Signed: Johann Higgins, at 13:05 EST , Service support ,
--- NOTE | 2019-03-29 12:51 | ED.VISSUMM ---
- ER Visit Summary Date of Service: 03/29/19 Chief Complaint: Multiple complaints History of Present Illness: The patient is a 23 F presenting with multiple complaints. She states this has been ongoing for the past 5 days. She complains of headache, sore throat, chest pain, cough, myalgias. She did not get a flu shot this year. She has tried ibuprofen at home. States that chest pain has been constant for the past 5 days. She states it is starting to improve. She has diffuse headache with history of migraine headaches. She states this feels similar to her previous migraine headaches. She has nausea with no vomiting. Denies fever. Denies other complaints. Physical Examination: Vitals are stable. Patient is afebrile. Alert no acute distress. HEENT exam is unremarkable. Pharynx is normal. No pharyngeal exudate. Uvula is midline. Neck is supple. No meningismus Lungs are clear and equal bilaterally. Heart is regular rate and rhythm. Abdomen is soft nontender nondistended. No rebound or guarding Extremities are unremarkable. Skin is warm and dry. No rash No focal neurologic deficit. Remainder of exam is unremarkable. Emergency Department Course and Treatment: Patient was given IV fluids, Reglan, Benadryl. EKG is sinus rate of 90 with no acute ischemic changes. Chest x-ray shows focal left perihilar infiltrate. Patient declined influenza test. Rapid strep is negative. CBC, chemistries unremarkable. Urinalysis unremarkable. CTA chest shows no PE, airspace disease involving the superior segment of the left lower lobe. Radiographic follow-up is recommended until clearing. Patient is advised of these findings. On reevaluation, she is resting comfortably. She is given doxycycline and a prescription for doxycycline. She is advised to follow-up with her primary care physician. Advised return ED if worsening complaints. Disposition: Discharge home Impression: Headache, improved; pneumonia This note was generated with [employer] dictation software. It may contain incorrect words, spelling, and punctuation that were not noted in review of the chart prior to signing ED Disposition - Plan for ED Patient: Instructions: HEADACHE, Unspecified, PNEUMONIA (Adult) Prescriptions: Doxycycline 100 mg PO BID #20 cap Prescription Printed Referrals: Keeley Honeycutt MD [STAFF PHYSICIAN] -
[2019-03-29] MEDS: 0.9% Normal Saline 1,000 ML 1000 ML IV (13:16)
[2019-03-29] MEDS: Metoclopramide 10 MG/2 ML Vial IV (13:17)
[2019-03-29] MEDS: DiphenhydrAMINE 50 MG/ML Syringe 25 MG IV (13:17)
[2019-03-29 13:19] LABS: Red Blood Cells-Urine 0 SEEN /hpf (0-5)
[2019-03-29 13:20] LABS: Color, Urine Yellow (Yellow); Glucose, Dipstick Normal (Normal); Ketone-Dipstick Negative (Negative); Leukocyte Esterase-Dipstick 500 /ul (Negative); Nitrite-Dipstick Negative (Negative); Occult Blood-Urine Negative /ul (Negative); Protein-Dipstick 15 mg/dl (Negative); Urine Bilirubin Dipstick Negative (Negative); Urine Clarity Cloudy (Clear); Urine Urobilinogen Normal (Normal)
[2019-03-29 13:23] LABS: Absolute Lymphocyte Count 1.25 X10^3/uL (0.83-4.51); Absolute Neutrophil Count 3.4 X10^3/uL (2.0-7.7); Basophil# 0.03 X10^3/uL; Basophil% 0.6 % (0-1); Eosinophil# 0.13 X10^3/uL; Eosinophils% 2.4 % (0-5); Hematocrit 38.5 % (37-47); Hemoglobin 12.3 g/dL (12.0-15.0); Lymphocyte # 1.25 X10^3/ul (4.0); Lymphocyte % 23.2 % (19-41); Mean Corp Hgb Conc 31.9 g/dL (32-36); Mean Corpuscular Hgb 26.3 pg (27.0-32.0); Mean Corpuscular Volume 82.3 fL (81-99); Mean Platelet Vol. 9.7 fl (6.2-12.0); Monocyte# 0.53 X10^3/uL; Monocyte% 9.9 % (0-10); NRBC Flagged by Analyzer 0 % (0-5); Neutrophil # 3.41 X10^3/uL (2.7-7.7); Neutrophil % 63.3 % (47-70); Platelet Count 256 K/mm3 (150-450); RBC Distribution Width CV 14.7 % (11.6-14.6); RBC Distribution Width SD 43.8 fl (35.1-43.9); Red Blood Count 4.68 M/mm3 (4.2-5.4); White Blood Count 5.4 K/mm3 (4.4-11.0)
[2019-03-29 13:34] LABS: Squamous Epithelial Cells - UA 5-10 SEEN /hpf (5-10); White Blood Cells 0-5 SEEN /hpf (0-5)
[2019-03-29 13:35] LABS: Bacteria 3+ /hpf (None Seen); Mucous, Urine 1+ /hpf (<or=2+)
[2019-03-29 13:41] LABS: Anion Gap 8 (5-15); BUN 7 mg/dL (7-18); BUN/Creat Ratio 9.2 RATIO (10-20); Calcium,Total 8.4 mg/dL (8.5-10.1); Chloride 108 mmol/L (98-107); Creatinine, Serum 0.76 mg/dL (0.55-1.02); EST Glomerular Filtration Rate 99 mL/min (>60); Est Glom Filt Rate - Afr Amer 120 mL/min (>60); Estimated Creatinine Clearance 90.28 ml/min; Glucose 125 mg/dL (74-106); Potassium 3.6 mmol/L (3.5-5.1); Sodium Level 140 mmol/L (136-145)
[2019-03-29 13:51] LABS: Internal QC Validated? YES +Cl - CLEAR BKGD; Pregnancy, Serum, hCG Quali. NEGATIVE Negative
[2019-03-29 14:01] LABS: D-Dimer Quantitative (DVT/PE) 0.83 FEU/ug/m (0.27-0.49)
--- NOTE | 2019-03-29 14:01 | ED.RN ---
D-DIMER 0.83. MD AWARE.
--- NOTE | 2019-03-29 14:02 | CT_ITS ---
STUDY: CTA CHEST REASON FOR EXAM: Female, 23 years old. Elevated d-dimer. Five-day history of body aches. RADIATION DOSAGE (If Supplied By Facility): CTDIvol = ( 11.43 ) mGy, DLP = ( 501.43 ) mGycm TECHNIQUE: The examination was performed with the intravenous administration of IV 100mL Isovue-370 100. Post-processing of the angiographic images was performed, with multiplanar reformation and 3D reconstruction. Individualized dose optimization techniques were used for this CT. COMPARISON: None. FINDINGS: Normal enhancement of the main pulmonary artery and right and left pulmonary arteries. Normal enhancement of the bilateral peripheral pulmonary arteries. There is no demonstrated pulmonary embolism. Normal thoracic aorta and visualized great vessels. There is no demonstrated aortic dissection. Normal heart and pericardium. Normal mediastinum. Normal hilar regions. Normal visualized trachea and bronchi. The lungs are well expanded. Degenerative infiltration in the superior segment of the left lower lobe. Normal pleura. Normal chest wall structures. Normal osseous structures. Small hiatal hernia. CT/CTA Chest W/WO Contrast IMPRESSION: Airspace disease involving the superior segment of the left lower lobe. Radiographic follow-up is recommended until clearing. Electronically Signed: Johann Higgins, at 14:52 EST , Service support ,
--- NOTE | 2019-03-29 15:11 | ED.DEP ---
ED Disposition - Plan for ED Patient: Instructions: HEADACHE, Unspecified, PNEUMONIA (Adult) Prescriptions: Doxycycline 100 mg PO BID #20 capsule Referrals: Keeley Honeycutt MD [STAFF PHYSICIAN] -
[2019-03-29] MEDS: Doxycycline 100 MG CAPSULE PO (15:27)
[2019-03-29 15:30] VITALS: BP 105/75; PULSE 86; RESP 18; TEMP 37.1; O2SAT 98
== END 2019-03-29 15:32 | disposition home or self-care (01) ==
LOC: ED 12:48
PROVIDERS: Emergency Provider Emergency Medicine
DX: R51 Headache (principal); J18.9 Pneumonia, unspecified organism; G43.909 Migraine, unspecified, not intractable, without status migrainosus; Z72.0 Tobacco use
CPT/HCPCS: 71045; 71275; 80048; 81001; 84484; 84703; 85025; 85379; 87880; 93005; 96361; 96374; 96375; 99285; J7030; Q9967

== ENCOUNTER → 2021-02-16 | Outpatient (CLI) | payer MEDICAID, SELFPAY ==
[2021-02-19 16:26] LABS: HPV Reflexed? NOT INDICATED
== END | disposition home or self-care (01) ==
LOC: LABSPEC 02-17 11:31
PROVIDERS: Visit Provider Obstetrics & Gynecology
DX: Z12.4 Encounter for screening for malignant neoplasm of cervix (principal); Z11.3 Encounter for screening for infections with a predominantly sexual mode of transmission
CPT/HCPCS: 88175; G0145

== ENCOUNTER → 2023-01-10 | Outpatient (CLI) | payer MEDICAID, SELFPAY ==
[2023-01-10 14:07] LABS: HIV - WCH Non-Reactive (Nonreactive); Syphilis Antibodies Non-reactive
[2023-01-11 10:46] LABS: Hepatitis B Surface Antibody Non-Reactive; Hepatitis B Surface Antigen Non-Reactive (Nonreactive); Hepatitis C Antibody Non-Reactive (Nonreactive)
[2023-01-12 05:07] LABS: Hepatitis B Core Ab Total Negative (Negative)
== END | disposition home or self-care (01) ==
PROVIDERS: Visit Provider Student in an Organized Health Care Education/Training Program
DX: Z01.419 Encounter for gynecological examination (general) (routine) without abnormal findings (principal)
CPT/HCPCS: 36415; 86703; 86704; 86705; 86706; 86707; 86780; 86803; 87340; 87350

== ENCOUNTER → 2023-06-05 | Emergency (ER) | payer MEDICAID, SELFPAY ==
[2023-06-05 14:04] VITALS: BP 154/89; PULSE 120; RESP 20; TEMP 35.7; O2SAT 94; BMI 56.7
--- NOTE | 2023-06-05 16:22 | EX.ED.DYSGE1 ---
HPI <DAMARIS Marie - Last Filed: 06/05/23 16:57> History of Present Illness Chief Complaint: Shortness of Breath Narrative Narrative: 27-year-old female states her daughter tested positive for influenza 4 days ago and 3 days ago she came down with flulike symptoms. She has had headache, subjective fever and chills, runny nose, sore throat, cough and feels mildly short of breath. She had an episode of vomiting and diarrhea yesterday but none today. No abdominal pain. She is here due to the significant sore throat because she does not remember having this before with the flu. She took ibuprofen yesterday which alleviated her headache but did not help her sore throat. She is able to swallow fluids. [facility] <DAMARIS Marie - Last Filed: 06/05/23 16:57> [facility] Medical History (Updated 06/05/23 @ 16:57 by DAMARIS Marie) 36 weeks gestation of False labor Home Medications vits no.130-ferrous fum 27 mg iron-folic acid 800 mcg tablet ( Vitamin) 1 ea PO DAILY 07/04/18 [History Last Taken 09/05/18 08:00] docusate sodium 100 mg capsule 100 mg PO BID PRN PRN Constipation #60 caps 09/08/18 [Rx Last Taken Unknown] doxycycline monohydrate 100 mg capsule 100 mg PO BID #20 caps 03/29/19 [Rx Last Taken Unknown] Allergy/AdvReac Type Severity Reaction Status Date / Time aloe vera Allergy Hives Verified 06/05/23 14:03 latex Allergy Rash Verified 06/05/23 14:03 nitrofurantoin Allergy Rash Verified 06/05/23 14:03 [From Macrobid] nitrofurantoin Allergy Rash Verified 06/05/23 14:03 macrocrystalline [From Macrobid] oxycodone [From Percocet] Allergy Rash Verified 06/05/23 14:03 Penicillins Allergy Hives Verified 06/05/23 14:03 Social History Smoking Status: Current every day smoker ROS <DAMARIS Marie - Last Filed: 06/05/23 16:57> ROS ED ROS Narrative Constitutional: Positive for fever, chills, malaise. ENT: Positive for sore throat, rhinorrhea. CVS: Negative for chest pain, syncope. Respiratory: Positive for shortness of breath, cough. GI: Positive for nausea, vomiting, diarrhea. Neuro: Positive for headache. EXAM <DAMARIS Marie - Last Filed: 06/05/23 16:57> Physical Exam Narrative Exam Narrative: CONST: Patient sitting in bed appears ill but nontoxic. EYES: Normal inspection. ENT: Pharyngeal erythema but no tonsillar swelling or exudate, midline uvula, moist mucous membranes. No trismus or tongue elevation, sublingual space is soft. Clear rhinorrhea. Normal TMs bilaterally. NECK: Normal inspection. No meningismus. RESP: No respiratory distress, CTAB. CVS: Tachycardic with regular rhythm, no murmur, no gallop. SKIN: Color normal, no rash, warm, dry, intact. EXTREMITIES: Normal appearance, no pedal edema. NEURO: Oriented x4. PSYCH: Normal affect. Const Vital Signs: 06/05/23 14:04 Temperature 96.2 F L Temperature Source Temporal Pulse Rate 120 H Respiratory Rate 20 H Blood Pressure 154/89 H Blood Pressure Mean 110 Pulse Ox 94 Oxygen Delivery Method Room Air <Dr. Gregorio Esquivel DO - Last Filed: 06/05/23 17:42> Physical Exam Const Vital Signs: 06/05/23 14:04 Temperature 96.2 F L Temperature Source Temporal Pulse Rate 120 H Respiratory Rate 20 H Blood Pressure 154/89 H Blood Pressure Mean 110 Pulse Ox 94 Oxygen Delivery Method Room Air MDM <DAMARIS Marie - Last Filed: 06/05/23 16:57> [facility] Narrative Medical decision making narrative: History gathered from: Patient and mom Patient has been exposed to the flu and has had 3 days of flulike symptoms. Presents for evaluation of her sore throat. She appears well and nontoxic. Heart rate is 120 with otherwise normal vital signs. Clinically she looks ill but nontoxic. She has pharyngeal erythema but no swelling or exudate. No signs of uvulitis or peritonsillar abscess or Tom's angina. She is tolerated p.o. intake today. The rest of her exam other than tachycardia is benign. I ordered Tylenol and Motrin for her sore throat with plan to reassess vitals. Patient was informed she needed moved out of room 2 for an incoming trauma and instead of waiting for another bed to open for reassessment she elected to leave without treatment. <Dr. Gregorio Esquivel DO - Last Filed: 06/05/23 17:42> [facility] Treatment and Re-Evaluation :: I was not directly involved in the patient's care. The patient eloped from the emergency department prior to my evaluation. Discharge Plan Triage Chief Complaint: Shortness of Breath ED Midlevel Provider: Lisa Murrieta ED Provider: Gregorio Esquivel Dx/Rx/DC Orders Clinical Impression: Acute viral syndrome, Acute sore throat Prescriptions: No Action docusate sodium 100 MG capsule 100 mg PO BID PRN PRN (Reason: Constipation) Qty: 60 1RF vit no.[id number] [ Vitamin] 1 EACH tablet 1 ea PO DAILY doxycycline monohydrate 100 MG capsule 100 mg PO BID Qty: 20 0RF Primary Care Provider: David Hudson Referrals: David Hudson, MITER OPERATOR-C [Primary Care Provider] - Capacity <Lisa Murrieta PA - Last Filed: 06/05/23 16:57> Legal Mailroom Manager Reflex Medical hold order details:: IF a medical hold is selected below, a suggested order for a MEDICAL HOLD will reflex upon signing the document. Next of kin: [place] law dictates a PRIORITY LIST for identifying legal decision-maker/legal next of kin in the following order (LNOK): 1st: The patient?s legal guardian, if any 2nd: The patient's spouse (if status is questionable, consult Risk Management) 3rd: The patient?s adult child(stephen) (majority, if multiple children) 4th: The patient?s parents 5th: The patient?s adult siblings (majority, if multiple children siblings)
--- OUTSIDE RECORDS SUMMARY | 2023-06-05 16:45 | XMS RPT_ITS | CCD ---
Author Name Unknown Address [address] [place] [address] Organization [facility] Care Team Providers Care Infant Lead Teacher Name Role Phone KAMALA DEE Attending Unavailable KAMALA DEE Primary Care Unavailable KAMALA DEE Admitting Unavailable Allergies Allergy Classification Reported Allergen(s) Allergy Type Date of Onset Reaction(s) Facility (1 source) Aloe Extract Drug Allergy [facility] Repository (1 source) Nitrofurantoin Drug Allergy [facility] Repository (1 source) oxyCODONE Drug Allergy [facility] Repository (1 source) Penicillin Drug Allergy [facility] Repository Results Test Name Value Interpretation Reference Range Facil ity Encounters Encounter Date Encounter Type Care Provider Facility Start: 02-16-2021 End: 02-16-2021 ambulatory KAMALA DEE [facility] Payers Date Payer Category Payer Unknown [id number] Medicaid [id number] Summary Purpose Family History No Family History Records Found Advance Directives No Advanced Directives Records Found Additional Source Comments INFORMATION SOURCE (unrecogn ized section and content) FOR RECORDS PERTAINING TO PATIENTS WHO ARE OR HAVE BEEN ENROLLED IN A CHEMICAL DEPENDENCY/SUBSTANCEABUSE PROGRAM, SOME INFORMATION MAY BE OMITTED. This clinical summary was aggregated from multiple sources. Caution should be exercised in using it in the provision of clinical care. This summary normalizes information from multiple sources, and as a consequence, information in this document may materially change the coding, format and clinical context of patient data. In addition, data may be omitted in some cases. CLINICAL DECISIONS SHOULD BE BASED ON THE PRIMARY CLINICAL RECORDS. [facility]. provides no warranty or guarantee of the accuracy or completeness of information in this document.
== END | disposition left against medical advice (07) ==
PROVIDERS: Emergency Provider Emergency Medicine; PCP Nurse Practitioner Family; Visit Provider Emergency Medicine
DX: B34.9 Viral infection, unspecified (principal); F17.200 Nicotine dependence, unspecified, uncomplicated; J02.9 Acute pharyngitis, unspecified

== ENCOUNTER → 2023-08-30 | Outpatient (CLI) | payer MEDICAID, SELFPAY ==
--- NOTE | 2023-08-30 12:25 | RAD_ITS ---
STUDY: X-RAY - LUMBAR SPINE REASON FOR EXAM: Female, 28 years old. Radiculopathy, lumbar region TECHNIQUE: 3 view(s) of the lumbar spine were obtained. COMPARISON: None FINDINGS: Normal lumbar lordosis. There is no substantial scoliosis. There is a normal alignment of the vertebrae. Normal vertebral bodies and endplates. Normal disc space heights. The soft tissue structures are unremarkable. RAD/Lumbar Spine 2 or 3 Views IMPRESSION: Normal x-ray examination of the lumbar spine. Electronically Signed: Rah Hancock MD at 20:27 EDT ,
== END | disposition home or self-care (01) ==
LOC: RAD 12:17
PROVIDERS: PCP Nurse Practitioner Family; Referring Provider Nurse Practitioner Family; Visit Provider Nurse Practitioner Family
DX: M54.16 Radiculopathy, lumbar region (principal)
CPT/HCPCS: 72100

== ENCOUNTER 2023-10-18 05:36 | Emergency (ER) | payer MEDICAID, SELFPAY ==
[2023-10-18 05:38] VITALS: BP 148/95; PULSE 97; RESP 20; TEMP 36.6; O2SAT 97; BMI 61.2
--- NOTE | 2023-10-18 06:12 | EX.ED.DYSGE1 ---
HPI History of Present Illness Chief Complaint: Numb/Ting Informant: patient and spouse/S.O. Narrative Narrative: Patient is a 28-year-old female with past medical history of anxiety and depression as well as reported chronic back pain for the past 2 years. She states she has been working with her family doctor to try and come up with a cause of her pain. She states she had x-rays obtained which were normal and now she is in physical therapy with the hopes of getting an MRI. She states this morning 1 to 2 hours prior to arrival she fell like she had to urinate and defecate and was walking up the stairs and had a small passage of stool. She states she was informed by her family doctor that if she loses control of her bowel or bladder that she needs to come to the ER for evaluation. Patient denies any IV drug use. She denies any recent fevers or chills or injury. She denies any dysuria or concern for [facility] Medical History (Updated 10/18/23 @ 06:[address] Yemi Holman, DO) Insomnia Depression Anxiety Vertigo False labor 36 weeks gestation of Home Medications ?Medication ?Instructions ?Recorded ?Last Taken ?Type escitalopram oxalate 20 mg tablet 20 mg PO .daily 10/18/23 Unknown History gabapentin 300 mg capsule 300 mg PO TID 30 days #90 caps 10/18/23 Unknown Rx hydroxyzine HCl 50 mg tablet 50 mg PO TID PRN PRN anxiety 10/18/23 Unknown History trazodone 100 mg tablet 100 mg PO QHS 10/18/23 Unknown History Allergy/AdvReac Type Severity Reaction Status Date / Time aloe vera Allergy Hives Verified 10/18/23 05:46 latex Allergy Rash Verified 10/18/23 05:46 nitrofurantoin (From Allergy Rash Verified 10/18/23 05:46 Macrobid) nitrofurantoin Allergy Rash Verified 10/18/23 05:46 macrocrystalline (From Macrobid) oxycodone (From Percocet) Allergy Rash Verified 10/18/23 05:46 Penicillins Allergy Hives Verified 10/18/23 05:46 Social History Smoking Status: Current every day smoker tobacco type: e-cigarettes ROS ROS ED Constitutional Constitutional ED: Denies chills or fever(s) Eyes Eyes: Denies change in vision ENT ENT ED: Denies sore throat Cardiovascular Cardiovascular: Denies chest pain Respiratory/Chest Respiratory/Chest: Denies cough or dyspnea Gastrointestinal Gastrointestinal: Denies abdominal pain, diarrhea, nausea or vomiting Genitourinary Genitourinary ED: Denies dysuria or hematuria Musculoskeletal Musculoskeletal: Reports back pain Integumentary Denies rash Neurologic Neurologic: Denies headache(s) Psychiatric Psychiatric: Reports anxiety and depression Hematologic/Lymphatic Hematologic/Lymphatic: Denies easy bleeding or easy bruising EXAM Physical Exam Const Vital Signs: 10/18/23 05:38 10/18/23 06:18 Temperature 97.8 F 96.8 F L Temperature Source Temporal Pulse Rate 97 90 Respiratory Rate 20 H 18 Blood Pressure 148/95 H 148/83 H Blood Pressure Mean 112 104 Pulse Ox 97 93 Oxygen Delivery Method Room Air Positive well nourished, well developed and obese General Appearance ED: well developed; Negative for pallor Nutritional Appearance: obese HEENT HEENT Narrative: Normocephalic atraumatic Eyes PERRL and EOMs intact bilaterally General Eye ED: Negative for scleral icterus Neck supple Neck Narrative: No nuchal rigidity or meningeal signs noted Resp normal respiratory effort and clear to auscultation bilaterally Cardio regular rate and regular rhythm GI normal to inspection, nondistended, normoactive bowel sounds, non-tender and non-distended Auscultation: normoactive bowel sounds Palpation: soft Back/Spine Back/Spine Narrative: No bony deformity or step-off of the thoracic or lumbar spine. There is mild midline pain on palpation as well as bilateral paralumbar tenderness that worsens with motion No saddle anesthesia. Negative straight leg raise. No clonus or Babinski. Patellar reflexes are plus 1 out of 4 bilaterally Extremity normal to inspection Neuro oriented x3, CN's II-XII intact bilaterally and no sensory deficits noted Sensorium / Orientation: alert Psych mental status grossly normal Skin no rashes or lesions noted and no wounds General Skin Exam: Negative for jaundice or pallor MDM MDM MDM Narrative Medical decision making narrative: Patient arrived to the ER hypertensive otherwise with stable vitals. She reported 2 years worth of lower back pain that was diffuse in nature. There have been no recent report of trauma and she denied any sick symptoms such as dysuria vaginal discharge or concern for . Differential diagnosis is for spinal stenosis versus compression fracture versus spondylolisthesis versus lumbosacral strain. The patient stated she already had x-rays obtained and therefore I felt no need for repeat x-rays as she denied any recent trauma. The patient reported loss of bowel control but stated that she felt like she had to urinate and defecate was walking upstairs when she had a slight accident. This indicates she knew she had to defecate which goes against cauda equina syndrome. Moreover she will not allow me to perform a rectal exam to document any type of normal versus abnormal rectal tone. I informed patient that as her physical exam does not show signs of obvious nerve compression and she knew she had to defecate but simply did not make it to the restroom in time and she is refusing to allow physical exam for rectal tone that I have no grounds to obtain an MRI. She states that she is okay with this and still does not want a rectal exam and states she will continue with physical therapy and try to follow-up with her family doctor on an outpatient basis. Also she denies any IV drug use and has not physical exam findings of track watson my concern for epidural abscess is low as well History & Record Review Discussion w/independent historian: Patient and Significant other Discharge Plan Triage Chief Complaint: Numb/Ting Other Complaint: Lower Extremity Injury ED Provider: Yemi Holman Dx/Rx/DC Orders Clinical Impression: Back pain, Morbid obesity, Anxiety and depression Instructions: ED Back Pain (Acute or Chronic), ED Degenerative Disk Disease Prescriptions: New gabapentin 300 mg capsule 300 mg PO TID 30 Days Qty: 90 0RF No Action hydroxyzine HCl 50 mg tablet 50 mg PO TID PRN PRN (Reason: anxiety) escitalopram oxalate 20 mg tablet 20 mg PO .daily trazodone 100 mg tablet 100 mg PO QHS Primary Care Provider: David Hudson Referrals: David Hudson, [employer] [Primary Care Provider] - Print Language: Japanese Disposition Disposition: Home, Self Care Discharge Date/Time: 10/18/23 06:31
[2023-10-18 06:18] VITALS: BP 148/83; PULSE 90; RESP 18; TEMP 36; O2SAT 93
== END 2023-10-18 06:31 | disposition home or self-care (01) ==
LOC: ED 06:23
PROVIDERS: Emergency Provider Emergency Medicine; PCP Nurse Practitioner Family; Visit Provider Emergency Medicine
DX: M54.9 Dorsalgia, unspecified (principal); E66.01 Morbid (severe) obesity due to excess calories; F41.8 Other specified anxiety disorders; Z79.899 Other long term (current) drug therapy; F17.290 Nicotine dependence, other tobacco product, uncomplicated
CPT/HCPCS: 99283

== ENCOUNTER → 2024-01-16 | Outpatient (CLI) | payer MEDICAID, SELFPAY ==
--- NOTE | 2024-01-16 08:32 | MRI_ITS ---
STUDY: MRI LUMBAR SPINE WITHOUT CONTRAST REASON FOR EXAM: Female, 28 years old. RADICULOPATHY -- lbp in and out, legs going numb and extreme leg pain x 1 yr TECHNIQUE: Standardized fat and water weighted pulse sequences were obtained in the sagittal and axial planes. COMPARISON: Lumbar spine x-rays August 30, 2023 FINDINGS: T12-L1: Normal endplates. Normal disc height, hydration and morphology. Normal bilateral facet joints. Normal central canal and bilateral lateral recesses. Normal bilateral intervertebral neural foramina. Normal lumbar lordosis. There is no substantial scoliosis. Normal conus medullaris that terminates at T12-L1 L1-2: Normal endplates. Normal disc height, hydration and morphology. Normal bilateral facet joints. Normal central canal and bilateral lateral recesses. Normal bilateral intervertebral neural foramina. L2-3: Normal endplates. Normal disc height, hydration and morphology. Normal bilateral facet joints. Normal central canal and bilateral lateral recesses. Normal bilateral intervertebral neural foramina. L3-4: Normal endplates. Normal disc height, hydration and morphology. Normal bilateral facet joints. Normal central canal and bilateral lateral recesses. Normal bilateral intervertebral neural foramina. L4-5: Normal endplates. Normal disc height, hydration and morphology. Normal bilateral facet joints. Normal central canal and bilateral lateral recesses. Normal bilateral intervertebral neural foramina. L5-S1: Minimal grade 1 retrolisthesis. Normal disc height, hydration and minimal bulging disc osteophyte complex. Normal bilateral facet joints. Normal central canal and bilateral lateral recesses. Normal bilateral intervertebral neural foramina. There is marked attenuation of the thecal sac in the sacral canal in association with extensive epidural fat of uncertain clinical significance. Normal visualized sacral ala. Normal visualized paraspinous soft tissue structures. No significant change since prior study given inherent differences in imaging modalities MRI/Spine Lumbar (Routine) IMPRESSION: Minimal bulging disc/osteophyte complex at L5-S1 without spinal stenosis No acute fracture or other significant bony pathology. Other findings as above Electronically Signed: Mirza Garber MD at 16:57 EDT ,
== END | disposition home or self-care (01) ==
PROVIDERS: PCP Nurse Practitioner Family; Referring Provider Nurse Practitioner Family; Visit Provider Nurse Practitioner Family
DX: M54.16 Radiculopathy, lumbar region (principal)
CPT/HCPCS: 72148

== ENCOUNTER 2024-12-14 19:29 | Emergency (ER) | payer MEDICAID, SELFPAY ==
[2024-12-14 19:30] VITALS: BP 140/113; PULSE 100; RESP 18; TEMP 37; O2SAT 98; BMI 60.3
--- NOTE | 2024-12-14 19:42 | ED.VIS.CHEST ---
HPI History of Present Illness Chief Complaint: Chest Pain [facility] Medical History (Updated 10/26/23 @ 00:01 by Fatuma Gaston) Insomnia Depression Anxiety Vertigo False labor 36 weeks gestation of Home Medications Medication Instructions Recorded Last Taken Type escitalopram oxalate 20 mg tablet 20 mg PO .daily 10/18/23 Unknown History gabapentin 300 mg capsule 300 mg PO TID 30 days #90 caps 10/18/23 Unknown Rx hydroxyzine HCl 50 mg tablet 50 mg PO TID PRN PRN anxiety 10/18/23 Unknown History trazodone 100 mg tablet 100 mg PO QHS 10/18/23 Unknown History Allergy/AdvReac Type Severity Reaction Status Date / Time aloe vera Allergy Hives Verified 12/14/24 19:30 latex Allergy Rash Verified 12/14/24 19:30 nitrofurantoin (From Allergy Rash Verified 12/14/24 19:30 Macrobid) nitrofurantoin Allergy Rash Verified 12/14/24 19:30 macrocrystalline (From Macrobid) oxycodone (From Percocet) Allergy Rash Verified 12/14/24 19:30 Penicillins Allergy Hives Verified 12/14/24 19:30 Social History Smoking Status: Current every day smoker tobacco type: cigarettes and e-cigarettes EXAM Physical Exam Const Vital Signs: 12/14/24 19:30 12/14/24 19:46 12/14/24 20:06 Temperature 98.6 F Temperature Source Oral Pulse Rate 100 85 Respiratory Rate 18 20 H Blood Pressure 140/113 H 127/96 H Blood Pressure Mean 122 106 Pulse Ox 98 98 Oxygen Delivery Method Room Air Room Air Room Air 12/14/24 20:29 12/14/24 21:00 Temperature Temperature Source Pulse Rate 79 71 Respiratory Rate 25 H 18 Blood Pressure 102/61 98/78 Blood Pressure Mean 74 84 Pulse Ox 97 97 Oxygen Delivery Method Room Air Room Air MDM MDM MDM Narrative Medical decision making narrative: HISTORY OF PRESENT ILLNESS: Chief complaint: Chest pain 29-year-old female history of anxiety, depression, vertigo presents with chest pain. She notes this began last night at approximately 11 p.m. She notes chest tightness. She thinks it could be anxiety. Denies abdominal pain. Denies vomiting. Denies bleeding diathesis. Denies recent Fever or chills. She does note a dry cough. Pain radiates to left arm. She reports sensory changes in the left upper extremity as well. patient denies sudden onset of pain, no tearing sensation, no migratory symptoms, no new numbness, weakness or loss of sensation. Patient denies family history or personal history of Connective tissue disorders (Marfan's Syndrome, Joshua Danlos etc) The patient denies recent surgery in the last 4 weeks or immobilization in the last 3 days, denies previous diagnosis of DVT or PE, hemoptysis, unilateral leg swelling or malignancy with treatment the last 6 months or palliative. No estrogen use noted. REVIEW OF SYSTEMS: Pertinent positives: Chest pain, numbness Pertinent negatives: Shortness of breath, syncope PHYSICAL EXAM: Nursing triage notes reviewed, Vital signs reviewed Constitutional: please see mdm HENT: MMM Eyes: Pupils equal round and reactive to light, Extraocular muscles intact Neck: No stridor, no JVD, full neck ROM Lungs: Clear to auscultation, No wheezing or rales. No increased work of breathing, no conversational dyspnea, no accessory muscle use, no nasal flaring. No respiratory distress noted Heart: Regular rate and rhythm, No murmurs, No rubs and No gallops, 2+ distal pulses (radial, femoral, posterior tibial) in all extremities Abdomen: Soft, there is no tenderness, rigidity, rebound or guarding, no obvious peritoneal signs, no palpable pulsatile abdominal masses, no auscultated abdominal bruit : No CVAT Extremities: No edema Neuro: Alert and oriented x3, neuro exam at baseline, cranial nerves II through XII are intact. No pain with extraocular muscle movement. There is negative test of skew. 5 of 5 strength in upper and lower extremities in flexion extension. Intact sensation to light touch in upper and lower extremity dermatomes. No truncal or extremity ataxia. No dysdiadochokinesia. Normal gait. 2+ reflexes in upper and lower extremities. No meningeal signs. Negative Babinski. NIH of 0. Intact 5/5 strength with ok sign (median), intact finger abduction (ulnar) intact wrist extension (radial n). Intact sensation in the radial, ulnar, and median nerve distributions. Skin: No rash or lesions noted MEDICAL DECISION MAKING: Chief Complaint: please see HPI External records reviewed: Reviewed prior cardiovascular testing. No recent echocardiograms, stress test or cardiac catheterizations noted Factors affecting care: as per HPI Social determinants of health: Denies illicit drug use History obtained from others: none Consults: none [facility] Narrative: The patient was initially hemodynamically stable, afebrile and nontoxic-appearing. Exam without focal neurologic deficits. I considered the following differential diagnosis: ACS, anemia, arrhythmia, electrolyte disturbance, GERD, pericarditis, PE, aortic dissection I obtained a broad lab and imaging to further determine if the patient was suffering from a life-threatening etiology. ALL IMAGES (IF OBTAINED) HAVE BEEN PERSONALLY REVIEWED AND INTERPRETED BY MYSELF. EKG with normal sinus rhythm rate of 87, normal axis, normal intervals, no STEMI High-sensitivity troponin is negative, no evidence of myocardial ischemia CBC without leukocytosis, severe anemia, no thrombocytopenia. BMP without evidence of significant electrolyte abnormalities, no anion gap, no acute kidney injury. I have personally reviewed the patient's chest x-ray. Chest x-ray is unremarkable for pulmonary edema, pneumothorax, pneumonia or focal cardiopulmonary abnormality. Awaiting delta troponin. Prior to the troponin resulting patient noted she wanted to leave. We had a shared decision-making discussion about the high-sensitivity troponin protocol and how to best rule out damage to her heart. I am for the patient to stay for the delta troponin however the patient was alert and orient x 3 and displayed capacity to make own medical decisions chose to forego additional testing at this time. Strict return precautions were discussed. Outpatient follow-up was arranged The patient and/or family, caregivers express understanding. The patient and/or family, caregivers agrees with the plan. Shared decision making: I will have a discussion with the patient and or visitors regarding risk/benefits of further testing or admission. They will be made aware of of the risk/benefits inherent in this decision they will be given the opportunity to voice understanding. Total critical care time today provided was at least 0 minutes. This excludes separately billable procedures. Critical care time (if documented) is secondary to the patient having high probability of clinically significant/life threatening deterioration in the patient's condition which required my urgent intervention. Impression: 1. Chest pain 2. Paresthesia Dispo: discharge home This note was generated with [employer] dictation software. It may contain incorrect words, spelling, and punctuation that were not noted in review of the chart prior to signing. Lab Data Labs: Laboratory Results - last 24 hr 12/14/24 19:45 WBC 8.7 RBC 4.89 Hgb 13.8 Hct 41.8 MCV 85.5 MCH 28.2 MCHC 33.0 RDW Std Deviation 43.1 RDW Coeff of Gina 13.8 Plt Count 300 MPV 9.5 Immature Gran % (Auto) 0.500 Neut % (Auto) 52.0 Lymph % (Auto) 38.5 [place] % (Auto) 6.8 Eos % (Auto) 1.7 Baso % (Auto) 0.5 Absolute Neuts (auto) 4.5 Absolute Lymphs (auto) 3.35 Nucleated RBC % 0 Sodium 138 Potassium 4.0 Chloride 106 Carbon Dioxide 21.0 Anion Gap 12 BUN 10 Creatinine 0.83 Estim Creat Clear Calc 140.71 Est GFR (MDRD) Non-Af 98 BUN/Creatinine Ratio 12.1 Glucose 130 H Calcium 8.5 Troponin T High Sens < 6 Radiography Diagnostic Testing: Clinical Impression(s) from Imaging Studies Chest X-Ray 12/14/24 20:20 IMPRESSION: Negative chest Reading Location: [facility] Discharge Plan Triage Chief Complaint: Chest Pain Other Complaint: Dizziness ED Provider: Gregorio Esquivel Dx/Rx/DC Orders Instructions: ED Chest Pain, Uncertain Cause Prescriptions: No Action hydroxyzine HCl 50 mg tablet 50 mg PO TID PRN PRN (Reason: anxiety) escitalopram oxalate 20 mg tablet 20 mg PO .daily trazodone 100 mg tablet 100 mg PO QHS gabapentin 300 mg capsule 300 mg PO TID 30 Days Qty: 90 0RF Primary Care Provider: David Hudson Referrals: David Hudson, [employer] [Primary Care Provider] - Activity Restrictions/Additional Instructions: Thank you for trusting us with your care today! Please take Tylenol (2 pills, 650 mg), ibuprofen (2 pills, 400 mg) every 6 hours as needed for pain and fever control. Your labs images are reassuring. No sign of heart damage. Please return to the emergency department if your symptoms change or worsen. Please follow with your primary care physician for further outpatient evaluation and management. Print Language: Portuguese Disposition Disposition: Home, Self Care Discharge Date/Time: 12/14/24 21:31
[2024-12-14 19:46] VITALS: BP 127/96; PULSE 85; RESP 20; O2SAT 98
--- OUTSIDE RECORDS SUMMARY | 2024-12-14 19:53 | XMS RPT_ITS | CCD ---
Author Organization [facility] CliniSyva Care Team Providers Care Carbon Dioxide Operator Name Role Phone KAMALA DEE Attending Unavailable KAMALA DEE Primary Care Unavailable KAMALA DEE Admitting Unavailable Hudson VSC, David Attending Unavailable Hudson VSC, David Primary Care Unavailable Hudson VSC, David Referring Unavailable Hudson VSC, David Attending Unavailable Hudson VSC, David Primary Care Unavailable Hudson VSC, David Referring Unavailable Hudson VSC, David Primary Care Unavailable Yemi Holman Attending Unavailable Hudson VSC, David Primary Care Unavailable Gregorio Esquivel Attending Unavailable Allergies Allergy Classification Reported Allergen(s) Allergy Type Date of Onset Reaction(s) Facility (1 source) Aloe Extract Drug Allergy [facility] (1 source) Nitrofurantoin Drug Allergy [facility] (1 source) oxyCODONE Drug Allergy [facility] (1 source) Penicillin Drug Allergy [facility] (3 sources) Aloe vera preparation Drug Allergy 9 [facility] (3 sources) Latex Allergy to substance 9 [facility] (3 sources) Nitrofurantoin Drug Allergy 9 [facility] (3 sources) oxyCODONE Drug Allergy 9 [facility] (3 sources) Penicillins Allergy to substance 9 [facility] (4 sources) nitrofurantoin macrocrystalline; Translations: [nitrofurantoin macrocrystalline] Allergy to substance 9 [facility] (1 source) Aloe Extract Drug Allergy 4 [facility] (1 source) Latex Drug allergy (disorder) 4 [facility] (1 source) Nitrofurantoin Drug Allergy 4 [facility] (1 source) oxyCODONE Drug Allergy 4 [facility] (1 source) Penicillins Drug allergy (disorder) 4 [facility] Medications Current Medications Medication Drug Class(es) Dates Sig (Normalized) Sig (Original) docusate sodium 100 mg oral capsule (3 sources) Start: 09-08-2018 take 100 mg by mouth twice daily as needed Docusate Sodium Active 100 MG PO TWICE DAILY NEEDED September 08, 2018 12:00am doxycycline monohydrate 100 mg oral capsule (3 sources) Tetracycline-clas s Drug Start: 03-29-2019 take 100 mg by mouth twice daily Doxycycline Monohydrate Active 100 MG PO TWICE A DAY March 29, 2019 1:00am Vit No.733-Tzob-Uefrz ( Tablet) 1 EACH tablet (3 sources) Start: 07-04-2018 Vit No.177-Vvxk-Fqizg ( Tablet) 1 EACH tablet Active 1 EACH PO DAILY July 04, 2018 12:00am Start: 07-04-2018 Vit N o.155-Nhyh-Wdjky ( Tablet) 1 EACH tablet Active 1 EACH PO DAILY July 04, 2018 1:00am Completed/Discontinued Medications Medication Drug Class(es) Dates Sig (Normalized) Sig (Original) oxyCODONE hydrochloride 5 mg oral tablet (3 sources) Opioid Agonist Start: 09-08-2018 End: 09-15-2018 take 5 mg by mouth every six hours as needed Oxycodone Discontinued 5 MG PO EVERY 6 HOURS NEEDED 08 12September 08, 2018 12:00am September 15, 2018 12:09am Vits (3 sources) Start: 04-15-2013 End: 04-16-2013 take 1 tablet by mouth once daily Vits Discontinued 1 TABLET PO DAILY April 15, 2013 12:00am April 16, 2013 10:31am Start: 04-15-2013 End: 04-16-2013 take 1 tablet by mouth once daily Vits Discontinued 1 TABLET PO DAILY April 15, 2013 1:00am April 16, 2013 11:31am Problems Active Problems Problem Classification Problem Date Documented Da te Episodic/Chronic Conditions associated with dizziness or vertigo (3 sources) Vertigo; Translations: [Dizziness and giddiness] 04-30-2018 Episodic Early or threatened labor (3 sources) False labor; Translations: [False labor, unspecified] 09-08-2018 Episodic Other upper respiratory infections (2 sources) Pain in throat; Translations: [Acute pharyngitis, unspecified] 06-05-2023 Episodic Residual codes; unclassified (3 sources) Gestation period, 36 weeks; Translations: [36 weeks gestation of ] 09-08-2018 Episodic Spondylosis; intervertebral disc disorders; other back problems (2 sources) Radiculopathy, lumbar region; Translations: [Dorsalgia, unspecified] Onset: 10-18-2023 Episodic Past or Other Problems Problem Classification Problem Date Documented Da te Episodic/Chronic Viral infection (3 sources) Acute viral disease; Translations: [Viral infection, unspecified] Onset: 10-02-2023 06-05-2023 Episodic Results Test Name Value Interpretation Reference Range Facil it Spine Lumbar (Routine)on Spine Lumbar (Routine) [facility] Imaging Services [address] [place] [address] [id number] Spine Lumbar (Routine) MR#: [id number] Acct: [id number] Name: TERI PETTY Rep #: [id number] : 1995 F 28 From: Mirza Garber MD PCP: MICHELLE Ashley Status: [facility] Study: Spine Lumbar (Routine) Date of Exam: 01/16/24 Exam# [id number] Ordering Dr: David Hudson [facility] BIG DATA DEVELOPER-C [id number] STUDY: MRI LUMBAR SPINE WITHOUT CONTRAST REASON FOR EXAM: Female, 28 years old. RADICULOPATHY -- lbp in and out, legs going numb and extreme leg pain x 1 yr TECHNIQUE: Standardized fat and water weighted pulse sequences were obtained in the sagittal and axial planes. COMPARISON: Lumbar spine x-rays August 30, 2023 FINDINGS: T12-L1: Normal endplates. Normal disc height, hydration and morphology. Normal bilateral facet joints. Normal central canal and bilateral lateral recesses. Normal bilateral intervertebral neural foramina. Normal lumbar lordosis. There is no substantial scoliosis. Normal conus medullaris that terminates at T12-L1 L1-2: Normal endplates. Normal disc height, hydration and morphology. Normal bilateral facet joints. Normal central canal and bilateral lateral recesses. Normal bilateral intervertebral neural foramina. L2-3: Normal endplates. Normal disc height, hydration and morphology. Normal bilateral facet joints. Normal central canal and bilateral lateral recesses. Normal bilateral intervertebral neural foramina. L3-4: Normal endplates. Normal disc height, hydration and morphology. Normal bilateral facet joints. Normal central canal and bilateral lateral recesses. Normal bilateral intervertebral neural foramina. L4-5: Normal endplates. Normal disc height, hydration and morphology. Normal bilateral facet joints. Normal central canal and bilateral lateral recesses. Normal bilateral intervertebral neural foramina. L5-S1: Minimal grade 1 retrolisthesis. Normal disc height, hydration and minimal bulging disc osteophyte complex. Normal bilateral facet joints. Normal central canal and bilateral lateral recesses. Normal bilateral intervertebral neural foramina. There is marked attenuation of the thecal sac in the sacral canal in association with extensive epidural fat of uncertain clinical significance. Normal visualized sacral ala. Normal visualized paraspinous soft tissue structures. No significant change since prior study given inherent differences in imaging modalities MRI/Spine Lumbar (Routine) IMPRESSION: Minimal bulging disc/osteophyte complex at L5-S1 without spinal stenosis No acute fracture or other significant bony pathology. Other findings as above Electronically Signed: Mirza Garber MD at 16:57 EDT , CC: MICHELLE Hudson Time Cycle Operator: Signed Normal [facility] Emergency Department Summary on 10-18-2023 Emergency Department Summary [facility] Medical Records Department [address] [place] [id number] Emergency Department Summary 10/18/23 MR#: [id number] Acct: [id number] Name: TERI PETTY Rep #: [id number] : 1995 28 From: Yemi Holman DO PCP: MICHELLE Ashley Status:DEP ER Location: ED HPI History of Present Illness Chief Complaint: Numb/Ting Informant: patient and spouse/S.O. Narrative Narrative: Patient is a 28-year-old female with past medical history of anxiety and depression as well as reported chronic back pain for the past 2 years. She states she has been working with her family doctor to try and come up with a cause of her pain. She states she had x-rays obtained which were normal and now she is in physical therapy with the hopes of getting an MRI. She states this morning 1 to 2 hours prior to arrival she fell like she had to urinate and defecate and was walking up the stairs and had a small passage of stool. She states she was informed by her family doctor that if she loses control of her bowel or bladder that she needs to come to the ER for evaluation. Patient denies any IV drug use. She denies any recent fevers or chills or injury. She denies any dysuria or concern for [facility] Medical History (Updated 10/18/23 @ 06:[address] Yemi Holman DO) Insomnia Depression Anxiety Vertigo False labor 36 weeks gestation of Home Medications ???Medication ???Instructions ???Recorded ???Last Taken ???Type escitalopram oxalate 20 mg tablet 20 mg PO .daily 10/18/23 Unknown History gabapentin 300 mg capsule 300 mg PO TID 30 days #90 caps 10/18/23 Unknown Rx hydroxyzine HCl 50 mg tablet 50 mg PO TID PRN PRN anxiety 10/18/23 Unknown History trazodone 100 mg tablet 100 mg PO QHS 10/18/23 Unknown History Allergy/AdvReac Type Severity Reaction Status Date / Time aloe vera Allergy Hives Verified 10/18/23 05:46 latex Allergy Rash Verified 10/18/23 05:46 nitrofurantoin (From Allergy Rash Verified 10/18/23 05:46 Macrobid) nitrofurantoin Allergy Rash Verified 10/18/23 05:46 macrocrystalline (From Macrobid) oxycodone (From Percocet) Allergy Rash Verified 10/18/23 05:46 Penicillins Allergy Hives Verified 10/18/23 05:46 Social History Smoking Status: Current every day smoker tobacco type: e-cigarettes ROS ROS ED Constitutional Constitutional ED: Denies chills or fever(s) Eyes Eyes: Denies change in vision ENT ENT ED: Denies sore throat Cardiovascular Cardiovascular: Denies chest pain Respiratory/Chest Respiratory/Chest: Denies cough or dyspnea Gastrointestinal Gastrointestinal: Denies abdominal pain, diarrhea, nausea or vomiting Genitourinary Genitourinary ED: Denies dysuria or hematuria Musculoskeletal Musculoskeletal: Reports back pain Integumentary Denies rash Neurologic Neurologic: Denies headache(s) Psychiatric Psychiatric: Reports anxiety and depression Hematologic/Lymphatic Hematologic/Lymphatic : Denies easy bleeding or easy bruising EXAM Physical Exam Const Vital Signs: 10/18/23 05:38 10/18/23 06:18 Temperature 97.8 F 96.8 F L Temperature Source Temporal Pulse Rate 97 90 Respiratory Rate 20 H 18 Blood Pressure 148/95 H 148/83 H Blood Pressure Mean 112 104 Pulse Ox 97 93 Oxygen Delivery Method Room Air Positive well nourished, well developed and obese General Appearance ED: well developed; Negative for pallor Nutritional Appearance: obese HEENT HEENT Narrative: Normocephalic atraumatic Eyes PERRL and EOMs intact bilaterally General Eye ED: Negative for scleral icterus Neck supple Neck Narrative: No nuchal rigidity or meningeal signs noted Resp normal respiratory effort and clear to auscultation bilaterally Cardio regular rate and regular rhythm GI normal to inspection, nondistended, normoactive bowel sounds, non-tender and non-distended Auscultation: normoactive bowel sounds Palpation: soft Back/Spine Back/Spine Narrative: No bony deformity or step-off of the thoracic or lumbar spine. There is mild midline pain on palpation as well as bilateral paralumbar tenderness that worsens with motion No saddle anesthesia. Negative straight leg raise. No clonus or Babinski. Patellar reflexes are plus 1 out of 4 bilaterally Extremity normal to inspection Neuro oriented x3, CN's II-XII intact bilaterally and no sensory deficits noted Sensorium / Orientation: alert Psych mental status grossly normal Skin no rashes or lesions noted and no wounds General Skin Exam: Negative for jaundice or pallor MDM MDM MDM Narrative Medical decision making narrative: Patient arrived to the ER hypertensive otherwise with stable vitals. She reported 2 years worth of lower back pain that was diffuse in nature. There have been no rec (more content not included)... Normal [facility] Lumbar Spine 2 or 3 Viewson 08-30-2023 Lumbar Spine 2 or 3 Views [facility] Imaging Services [address] [place] [address] Lumbar Spine 2 or 3 Views MR#: [id number] Acct: [id number] Name: TERI PETTY Rep #: [id number] : 1995 F 28 From: Rah Hancock MD PCP: MICHELLE Ashley Status: REG CLI Study: Lumbar Spine 2 or 3 Views Date of Exam: Exam# [id number] Ordering Dr: David Hudson [facility] BIG DATA DEVELOPER-C [id number] STUDY: X-RAY - LUMBAR SPINE REASON FOR EXAM: Female, 28 years old. Radiculopathy, lumbar region TECHNIQUE: 3 view(s) of the lumbar spine were obtained. COMPARISON: None FINDINGS: Normal lumbar lordosis. There is no substantial scoliosis. There is a normal alignment of the vertebrae. Normal vertebral bodies and endplates. Normal disc space heights. The soft tissue structures are unremarkable. RAD/Lumbar Spine 2 or 3 Views IMPRESSION: Normal x-ray examination of the lumbar spine. Electronically Signed: Rah Hancock MD at 20:27 EDT , CC: MICHELLE Hudson Time Cycle Operator: Signed Normal [facility] Emergency Department Summary on 06-05-2023 Emergency Department Summary [facility] Medical Records Department [address] [place] [address] Emergency Department Summary 06/05/23 MR#: [id number] Acct: [id number] Name: TERI PETTY Rep #: [id number] : 1995 27 From: Lisa OCAMPO PCP: MICHELLE Ashley Status:REG ER Location: ED HPI History of Present Illness Chief Complaint: Shortness of Breath Narrative Narrative: 27-year-old female states her daughter tested positive for influenza 4 days ago and 3 days ago she came down with flulike symptoms. She has had headache, subjective fever and chills, runny nose, sore throat, cough and feels mildly short of breath. She had an episode of vomiting and diarrhea yesterday but none today. No abdominal pain. She is here due to the significant sore throat because she does not remember having this before with the flu. She took ibuprofen yesterday which alleviated her headache but did not help her sore throat. She is able to swallow fluids. [facility] Medical History (Updated 06/05/23 @ 16:57 by DAMARIS Marie) 36 weeks gestation of False labor Home Medications vits no.130-ferrous fum 27 mg iron-folic acid 800 mcg tablet ( Vitamin) 1 ea PO DAILY 07/04/18 [History Last Taken 09/05/18 08:00] docusate sodium 100 mg capsule 100 mg PO BID PRN PRN Constipation #60 caps 09/08/18 [Rx Last Taken Unknown] doxycycline monohydrate 100 mg capsule 100 mg PO BID #20 caps 03/29/19 [Rx Last Taken Unknown] Allergy/AdvReac Type Severity Reaction Status Date / Time aloe vera Allergy Hives Verified 06/05/23 14:03 latex Allergy Rash Verified 06/05/23 14:03 nitrofurantoin Allergy Rash Verified 06/05/23 14:03 [From Macrobid] nitrofurantoin Allergy Rash Verified 06/05/23 14:03 macrocrystalline [From Macrobid] oxycodone [From Percocet] Allergy Rash Verified 06/05/23 14:03 Penicillins Allergy Hives Verified 06/05/23 14:03 Social History Smoking Status: Current every day smoker ROS ROS ED ROS Narrative Constitutional: Positive for fever, chills, malaise. ENT: Positive for sore throat, rhinorrhea. CVS: Negative for chest pain, syncope. Respiratory: Positive for shortness of breath, cough. GI: Positive for nausea, vomiting, diarrhea. Neuro: Positive for headache. EXAM Physical Exam Narrative Exam Narrative: CONST: Patient sitting in bed appears ill but nontoxic. EYES: Normal inspection. ENT: Pharyngeal erythema but no tonsillar swelling or exudate, midline uvula, moist mucous membranes. No trismus or tongue elevation, sublingual space is soft. Clear rhinorrhea. Normal TMs bilaterally. NECK: Normal inspection. No meningismus. RESP: No respiratory distress, CTAB. CVS: Tachycardic with regular rhythm, no murmur, no gallop. SKIN: Color normal, no rash, warm, dry, intact. EXTREMITIES: Normal appearance, no pedal edema. NEURO: Oriented x4. PSYCH: Normal affect. Const Vital Signs: 06/05/23 14:04 Temperature 96.2 F L Temperature Source Temporal Pulse Rate 120 H Respiratory Rate 20 H Blood Pressure 154/89 H Blood Pressure Mean 110 Pulse Ox 94 Oxygen Delivery Method Room Air Physical Exam Const Vital Signs: 06/05/23 14:04 Temperature 96.2 F L Temperature Source Temporal Pulse Rate 120 H Respiratory Rate 20 H Blood Pressure 154/89 H Blood Pressure Mean 110 Pulse Ox 94 Oxygen Delivery Method Room Air MDM MDM MDM Narrative Medical decision making narrative: History gathered from: Patient and mom Patient has been exposed to the flu and has had 3 days of flulike symptoms. Presents for evaluation of her sore throat. She appears well and nontoxic. Heart rate is 120 with otherwise normal vital signs. Clinically she looks ill but nontoxic. She has pharyngeal erythema but no swelling or exudate. No signs of uvulitis or peritonsillar abscess or Tom's angina. She is tolerated p.o. intake today. The rest of her exam other than tachycardia is benign. I ordered Tylenol and Motrin for her sore throat with plan to reassess vitals. Patient was informed she needed moved out of room 2 for an incoming trauma and instead of waiting for another bed to open for reassessment she elected to leave without treatment. MDM Treatment and Re-Evaluation :: I was not directly involved in the patient's care. The patient eloped from the emergency department prior to my evaluation. Discharge Plan Triage Chief Complaint: Shortness of Breath ED Midlevel Provider: Lisa Murrieta ED Provider: Gregorio Esquivel Dx/Rx/DC Orders Clinical Impression: Acute viral syndrome, Acute sore throat Prescriptions: No Action docusate sodium 100 MG capsule 100 mg PO BID PRN PRN (Reason: Constipation) Qty: 60 1RF vit no.143-wssd-fivb (more content not included)... Normal [facility] HIV 1 and HIV-2 antibody ass ay with HIV-1 p24 antigen detectionOrdered By: Kanika Frye on 01-10-2023 HIV 1+2 Ab+HIV1 p24 Ag IA Ql Non-Reactive Nonreactive [facility] No Panel InformationOrdered By: Kanika Frye on 01-10-2023 Hepatitis B Surface Antigen Non-Reactive Nonreactive [facility] Hepatitis C Antibody Non-Reactive Nonreactive [facility] Comment on above: Non Reactive: < 0.8 Equivocal: >/= 0.8 to < 1.0 Reactive: >/= 1.0The [facility] recommends that a reactive/equivocal HCV antibody result be followed up by the HCV Nucleic Acid Amplificationtest (869474) Serum Treponema species anti body detectionOrdered By: Kanika Frye on 01-10-2023 Treponema sp Ab Ql (S) Non-Reactive [facility] Serum hepatitis B virus core antibody detectionOrdered By: Kanika Frye on 01-10-2023 HBV core Ab Ql (S) Negative Negative [facility] Comment on above: Performed at: [place] [id number] Director: Andrey Villanueva PhD, Phone: [phone] Serum hepatitis B virus surf geremias antibody IgG detectionOrdered By: Kanika Frye on 01-10-2023 HBV surface IgG Ql (S) Non-Reactive [facility] Comment on above: Non Reactive: Incons istent with immunity less than <10 mIU/mL Reactive: Consistent with immunity greater than or equal to 10 mIU/mL CULTURE URINEon 02-16-2021 CULTURE URINE CULTURE URINE _URINE CULTURE_ M I C R O B I O L O G Y R E P O R T FINAL Antimicrobial Susceptibility and Organism Identification Report Specimen Number : [id number] Requested : 02/16/21 Specimen Source : URINE Collected : 02/16/21 14:15 Corrigan of Isolation : OUTPATIENT Received : 02/16/21 14:15 Requesting Physician : LUIZ ------ Patient/Specimen Tests and Comments Specimen Comments FINAL REPORT: URINE COLONY COUNT: > THAN 100,000 CFU/CC GRAM NEGATIVE RODS CONTAMINATED WITH: GRAM POSITIVE RIO ------ Organisms Identified --- -------- * 01 Escherichia coli 02/19/21 Comments >100,000 CFU ------ Tech : Source : URINE ID # : [id number] FINAL Report Date : / / : Collected : 02/16/21 14:15 Continued on Next Page M I C R O B I O L O G Y R E P O R T FINAL Antimicrobial Susceptibility and Organism Identification Report ------ Isolate 01 Escherichia coli ------ Escherichia coli DRUG DUYEN Sys. Urine UNITS ML/DL --- ----- ----- Amp/Sulbactam 16/8 I I Ampicillin >16 R R Aztreonam <=4 S S Ceftriaxone <=1 S S Ceftazidime <=1 S S Ciprofloxacin <=1 S S Ertapenem <=0.5 S S Nitrofurantoin <=32 S Gentamicin <=4 S S Levofloxacin <=2 S S Meropenem <=1 S S Pip/Tazo <=16 S S Trimeth/Sulfa <=2/38 S S Tetracycline 8 I I Tobramycin <=4 S S +, ++, +++, or S = Susceptible N/R = Not Reported Rick = Beta Lactamase Positive I = Intermediate CC = Cost Code TFG = Thymidine-dependent Strain R = Resistant DUYEN = mcg/ml (mg/L) Blank = Data not available, or drug not advisable or tested For Blood and CSF Isolates, a Beta-Lactamase test is recommended for Enterococus species. IB appears in place of S, I (S), +, ++, or +++ with species known to possess inducible B-lactamases; potentially they may become resistant to all B-lactam drugs. Monitoring of patients during/after therapy is recommended. Avoid other/combined B-lactam drugs. (a) Use maximum doses of drug with an aminoglycoside for P. aeruginosa in patients with granulocytopenia or serious infections. (b) Breakpoints based on parenteral dose. For cefuroxime Axetil (PO) use <8=S, 8-16=I, >16=R. (c) For non-enterococcal streptococci, Micrococcus species, and Listeria species, refer to the Ampicillin interpretation. ------ * Interpretations based on approx. adult attainable systemic/urine levels, except drugs with <3 dilutions, which print NCCLS. Doses are guidelines; consider weight and renal/hepatic function. Urine interpretation for lower UTI only. Interpretations based on NCCLS M7-A2. Ticar/K Clav'ate for gram positives based on ultrasonic solderer's breakpoints. ------ Tech : Source : URINE ID # : [id number] FINAL Report Date : / / : Collected : 02/16/21 14:15 02/19/21.SABRINA. 02/17/21.1608.KLJazmin. SEND TO PHARMACY? NO 02/19/21.[employer].CSS99 PLETE NO Normal [facility] Comment on above: Performed By: #### [id number] #### [facility],[address] [place] [address] Vital Signs Date Time Vital Sign Value Performing Clinician Danilo mchugh 06-05-2023 14:04-0500 Body height 157.[address] [facility] 06-05-2023 14:04-0500 Body mass index (BMI) [Ratio] 56.7 kg/m2 [facility] 06-05-2023 14:04-0500 Body temperature 96.2 [degF] [facility] 06-05-2023 14:04-0500 Body weight 140.[address] [facility] 06-05-2023 14:04-0500 Diastolic blood pressure 89 mm[Hg] [facility] 06-05-2023 14:04-0500 Heart rate 120 /min [facility] 06-05-2023 14:04-0500 Respiratory rate 20 /min [facility] 06-05-2023 14:04-0500 SaO2% (BldA) [Mass fraction] 94 % [facility] 06-05-2023 14:04-0500 Systolic blood pressure 154 mm[Hg] [facility] Encounters Encounter Date Encounter Type Care Provider Facility Start: 01-16-2024 End: 01-16-2024 ambulatory [facility] Facility:[facility] Start: 10-18-2023 End: 10-18-2023 Emergency department patient visit David Hudson [facility] Facility:[facility] Start: 08-30-2023 End: 08-30-2023 ambulatory [facility] Work Phone: Start: 08-30-2023 End: 08-30-2023 Patient encounter procedure [facility]Radiology, [facility] Work Phone: Start: 08-30-2023 End: 08-30-2023 ambulatory [facility] Facility: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 Work Phone: Immunizations Immunization Date Immunization Notes Care Provider Ernesto pryor 05-20-2013 Influenza virus vaccine [facility] 05-20-2013 pneumococcal vaccine , unspecified formulation [facility] 05-19-2013 measles, mumps and rubella virus vaccine [facility] Payers Date Payer Category Payer Self-pay [id number] 2023 Medicaid [id number] 1995 Unknown [id number] Unknown FOR[facility]LY [facility] PLAN [id number] Unknown [id number] [id number] Unknown [id number] Unknown [id number] Unknown [id number] [id number] [id number] Social History Date Type Detail Facility Start: 03-29-2019 End: 03-29-2019 Tobacco smoking status NHIS Unknown if ever smoked [facility] Start: 1995 Sex Assigned At Female [facility] Discharge summary 06-05-2023 Note Date & Type Note Facility 06-05-2023 Discharge summary Note Date/Time June 05, 2023 4:24pm [facility] Medical Records Department [address] [place] [address] Emergency Department Summary 06/05/23 MR#: [id number] Acct: [id number] Name: TERI PETTY Rep #:[id number] : 1995 27 From: Lisa OCAMPO PCP: SEBLE AshleyC Status:REG ER Location: ED HPI <DAMARIS Marie - Last Filed: 06/05/23 16:57> History of Present Illness Chief Complaint: Shortness of Breath Narrative Narrative: 27-year-old female states her daughter tested positive for influenza 4 days ago and 3 days ago she came down with flulike symptoms. She has had headache, subjective fever and chills, runny nose, sore throat, cough and feels mildly short of breath. She had an episode of vomiting and diarrhea yesterday but nonetoday. No abdominal pain. She is here due to the significant sore throat because she does not remember having this before with the flu. She took ibuprofen yesterday which alleviated her headache but did not help her sore throat. She is able to swallow fluids. [facility] <DAMARIS Marie - Last Filed: 06/05/23 16:57> [facility] Medical History (Updated 06/05/23 @ 16:57 by DAMARIS Marie) 36 weeks gestation of False labor Home Medications vits no.130-ferrous fum 27 mg iron-folic acid 800 mcg tablet ( Vitamin) 1 ea PO DAILY 07/04/18 [History Last Taken 09/05/18 08:00] docusate sodium 100 mg capsule 100 mg PO BID PRN PRN Constipation #60 caps 09/08/18 [Rx Last Taken Unknown] doxycycline monohydrate 100 mg capsule 100 mg PO BID #20 caps 03/29/19 [Rx Last Taken Unknown] Allergy/AdvReac Type Severity Reaction Status Date / Time aloe vera Allergy Hives Verified 06/05/23 14:03 latex Allergy Rash Verified 06/05/23 14:03 nitrofurantoin Allergy Rash Verified 06/05/23 14:03 [From Macrobid] nitrofurantoin Allergy Rash Verified 06/05/23 14:03 macrocrystalline [From Macrobid] oxycodone [From Percocet] Allergy Rash Verified 06/05/23 14:03 Penicillins Allergy Hives Verified 06/05/23 14:03 Social History Smoking Status: Current every day smoker ROS <DAMARIS Marie - Last Filed: 06/05/23 16:57> ROS ED ROS Narrative Constitutional: Positive for fever, chills, malaise. ENT: Positive for sore throat, rhinorrhea. CVS: Negative for chest pain, syncope. Respiratory: Positive for shortness of breath, cough. GI: Positive for nausea, vomiting, diarrhea. Neuro: Positive for headache. EXAM <DAMARIS Marie - Last Filed: 06/05/23 16:57> Physical Exam Narrative Exam Narrative: CONST: Patient sitting in bed appears ill but nontoxic. EYES: Normal inspection. ENT: Pharyngeal erythema but no tonsillar swelling or exudate, midline uvula, moist mucous membranes. No trismus or tongue elevation, sublingual space is soft. Clear rhinorrhea. Normal TMs bilaterally. NECK: Normal inspection. No meningismus. RESP: No respiratory distress, CTAB. CVS: Tachycardic with regular rhythm, no murmur, no gallop. SKIN: Color normal, no rash, warm, dry, intact. EXTREMITIES: Normal appearance, no pedal edema. NEURO: Oriented x4. PSYCH: Normal affect. Const Vital Signs: 06/05/23 14:04 Temperature 96.2 F L Temperature Source Temporal Pulse Rate 120 H Respiratory Rate 20 H Blood Pressure 154/89 H Blood Pressure Mean 110 Pulse Ox 94 Oxygen Delivery Method Room Air <Dr. Gregorio Esquviel, DO - Last Filed: 06/05/23 17:42> Physical Exam Const Vital Signs: 06/05/23 14:04 Temperature 96.2 F L Temperature Source Temporal Pulse Rate 120 H Respiratory Rate 20 H Blood Pressure 154/89 H Blood Pressure Mean 110 Pulse Ox 94 Oxygen Delivery Method Room Air MDM <DAMARIS Marie - Last Filed: 06/05/23 16:57> MDM MDM Narrative Medical decision making narrative: History gathered from: Patient and mom Patient has been exposed to the flu and has had 3 days of flulike symptoms. Presents for evaluation of her sore throat. She appears well and nontoxic. Heart rate is 120 with otherwise normal vital signs. Clinically she looks ill but nontoxic. She has pharyngeal erythema but no swelling or exudate. No signsof uvulitis or peritonsillar abscess or Tom's angina. She is tolerated p.o. intake today. The rest of her exam other than tachycardia is benign. I orderedTylenol and Motrin for her sore throat with plan to reassess vitals. Patient was informed she needed moved out of room 2 for an incoming trauma and instead of waiting for another bed to open for reassessment she elected to leave withouttreatment. <Dr. Gregorio Esquivel DO - Last Filed: 06/05/23 17:42> [facility] Treatment and Re-Evaluation :: I was not directly involved in the patient's care. The patient eloped from the emergency department prior to my evaluation. Discharge Plan Triage Chief Complaint: Shortness of Breath ED Midlevel Provider: Lisa Murrieta ED Provider: Gregorio Esquivel Dx/Rx/DC Orders Clinical Impression: Acute viral syndrome, Acute sore throat Prescriptions: No Action docusate sodium 100 MG capsule 100 mg PO BID PRN PRN (Reason: Constipation) Qty: 60 1RF vit no.[id number] [ Vitamin] 1 EACH tablet 1 ea PO DAILY doxycycline monohydrate 100 MG capsule 100 mg PO BID Qty: 20 0RF Primary Care Provider: David Hudson Referrals: David Hudson, BIG DATA DEVELOPER-C [Primary Care Provider] - Capacity <DAMARIS Marie - Last Filed: 06/05/23 16:57> Legal Manager Law Reflex Medical hold order details:: IF a medical hold is selected below, a suggested order for a MEDICAL HOLD will reflex upon signing the document. Next of kin: [place] law dictates a PRIORITY LIST for identifying legal decision-maker/legal next of kin in the following order (LNOK): 1st: The patient?s legal guardian, if any 2nd: The patient's spouse (if status is questionable, consult Risk Management) 3rd: The patient?s adult child(stephen) (majority, if multiple children) 4th: The patient?s parents 5th: The patient?s adult siblings (majority, if multiple children siblings) What to do if you have Problems For any increased pain, shortness of breath, bleeding, nausea or vomiting, chestpain, or any unexpected problems, contact your Primary Care Provider. Call [facility] ([phone]) or report to the closest Emergency Room. Call 911 if necessary. 06/05/23 1657 <Electronically signed by Lisa OCAMPO> Cosigner Signature (if applicable): 06/05/23 1742 <Electronically signed by Gregorio Esquivel DO> CC: BIG DATA DEVELOPER-C David Hudson ~ Signed [facility] Work Phone: Evaluation note Note Date & Type Note Facility Evaluation note No assessment information availa ble [facility] Work Phone: Summary Purpose Family History No Family History Records FoundNo Family History Records Found Advance Directives No Advanced Directives Records Found Advance Directive Response Recorded Date/ Time Living Will No March 29 2:17pm Power of Sewing Machine Operator Semiautomatic No March 29, 2019 2:17pm Advance Directive Response Recorded Date/ Time Living Will No March 29 1:17pm Power of Sewing Machine Operator Semiautomatic No March 29, 2019 1:17pm Chief Complaint and Reason for Visit Chief Complaint sob Chief Complaint sob Radiculopathy, lumbar region Additional Source Comments INFORMATION SOURCE (unrecogn ized section and content) DATE CREATED AUTHOR 02/20/2021 [facility] DATE CREATED AUTHOR AUTHOR'S JAZ ATION 01/28/[address] [facility] Care Teams (unrecognized sec tion and content) Team Status: Active Member Role Status Dates No Primary Care Physician Family Provider Active No Primary Care Physician Primary Care Provider Active Team Status: Inactive Member Role Status Dates No Primary Care Physician Primary Care Provider Active Dr. Kanika Frye DO Attending Provider Active Team Status: Active Member Role Status Dates No Primary Care Physician Family Provider Active David BRAVO, BIG DATA DEVELOPER-C Primary Care Provider Active Team Status: Inactive Member Role Status Dates David BRAVO, BIG DATA DEVELOPER-Trae Primary Care Provider Active Dr. Gregorio Esquivel DO Attending Provider, Jimmy joyce Active Team Status: Inactive Member Role Status Dates David BRAVO BIG DATA DEVELOPER-C Primary Care Provid er, Attending Provider, Referring Provider Active Goals (unrecognized section and content) Goals may be documented in a n alternate sectionGoals may be documented in an alternate sectionGoals may be documented in an alternate section FOR RECORDS PERTAINING TO PATIENTS WHO ARE [...] BE BASED ON THE PRIMARY CLINICAL RECORDS. [facility] [employer] [facility]. provides no warranty or guarantee of the accuracy or completeness of information in this document.
--- NOTE | 2024-12-14 20:06 | EKG12_ITS ---
Test Reason : CP Blood Pressure : */* mmHG Vent. Rate : 87 BPM Atrial Rate : 87 BPM P-R Int : 178 ms QRS Dur : 82 ms QT Int : 376 ms P-R-T Axes : 16 29 12 degrees QTcB Int : 452 ms Normal sinus rhythm Normal ECG Confirmed by PARRISH DELUCA, VETO ([id number]), newspaper editor ROBERTO PADRON ([id number]) on 12/16/2024 7:32:32 AM Referred By: TB Confirmed By: VETO SENIOR MD
[2024-12-14 20:18] LABS: Hematocrit 41.8 % (37-47); Hemoglobin 13.8 g/dL (12.0-15.0); Immature Granulocytes Count 0.040 X10^3/uL (0.0-0.0); Mean Corp Hgb Conc 33.0 g/dL (32-36); Mean Corpuscular Volume 85.5 fL (81-99); Mean Platelet Vol. 9.5 fl (6.2-12.0); NRBC Flagged by Analyzer 0 % (0-5); Platelet Count 300 K/mm3 (150-450); RBC Distribution Width CV 13.8 % (11.6-14.6); RBC Distribution Width SD 43.1 fl (35.1-43.9); Red Blood Count 4.89 M/mm3 (4.2-5.4); White Blood Count 8.7 K/mm3 (4.4-11.0)
--- NOTE | 2024-12-14 20:20 | RAD_ITS ---
PROCEDURE: CHEST 1 VIEW (PORTABLE) 12/14/2024 REASON FOR EXAM: CHEST PAIN TECHNIQUE: Frontal view of the chest. COMPARISON: 03/29/2019 FINDINGS: Lungs and pleural spaces clear. No infiltrates or consolidation RAD/Chest 1 View (Portable) IMPRESSION: Negative chest [facility]
[2024-12-14 20:29] VITALS: BP 102/61; PULSE 79; RESP 25; O2SAT 97
[2024-12-14 20:39] LABS: Anion Gap 12 (5-15); BUN 10 mg/dL (4-19); BUN/Creat Ratio 12.1 RATIO (10-20); Calcium,Total 8.5 mg/dL (7.6-11.0); Carbon Dioxide 21.0 mmol/L (21.0-32.0); Chloride 106 mmol/L (98-108); Estimated Creatinine Clearance 140.71 ml/min (50-250); Glucose 130 mg/dL (70-99); Potassium 4.0 mmol/L (3.3-5.1); Troponin T High Sensitivity < 6 ng/L (<=14)
[2024-12-14 21:00] VITALS: BP 98/78; PULSE 71; RESP 18; O2SAT 97
[2024-12-14 21:28] VITALS: BP 95/62; PULSE 77; RESP 18; TEMP 36.7; O2SAT 99
== END 2024-12-14 21:31 | disposition home or self-care (01) ==
PROVIDERS: Emergency Provider Emergency Medicine; PCP Nurse Practitioner Family; Visit Provider Emergency Medicine
DX: R07.9 Chest pain, unspecified (principal); R20.2 Paresthesia of skin; R42 Dizziness and giddiness; F41.9 Anxiety disorder, unspecified; F17.210 Nicotine dependence, cigarettes, uncomplicated; F32.A Depression, unspecified; Z79.899 Other long term (current) drug therapy; F17.290 Nicotine dependence, other tobacco product, uncomplicated
CPT/HCPCS: 71045; 80048; 84484; 85025; 93005; 99285